=== PATIENT | male | born 1960 | race Caucasian/White ===

== ENCOUNTER 2017-11-11 20:57 | Inpatient (IN) | payer SELFPAY ==
[2017-11-11] MEDS ORDERED: Sodium Chloride 0.9% 1,000 ML IV SCH (23:30)
[2017-11-11] MEDS ORDERED: Acetaminophen 325 MG TAB PO PRN (23:31)
[2017-11-11] MEDS ORDERED: Ondansetron ODT 4 MG TAB SL PRN (23:31)
[2017-11-11] MEDS ORDERED: Ondansetron HCl/PF 4 MG/2 ML Vial IVP PRN (23:31)
[2017-11-12] MEDS ORDERED: Acetaminophen 325 MG TAB PO PRN (03:59)
[2017-11-12] MEDS ORDERED: Mag-Al 1200 mg/1200 mg/30 ML UDCUP PO PRN (03:59)
[2017-11-12] MEDS ORDERED: Senokot 8.6 MG TAB PO PRN (03:59)
[2017-11-12] MEDS ORDERED: Guaifenesin DM 100-10/5 ML UDCUP PO PRN (03:59)
[2017-11-12 04:41] LABS: Bilirubin Negative (Negative); Blood, Urine Negative (Negative); Clarity CLEAR (Clear); Glucose, Urine (Dipstick) Negative (Negative); Leukocyte Negative (Negative); Nitrite Negative (Negative); Protein, Urine (Dipstick) Negative (Neg-Trace); Specific Gravity, Urine 1.008 (1.002-1.036); Urobilinogen 0.2 mg/dL (0.2-1.0)
[2017-11-12 04:43] LABS: Bacteria/HPF None Seen HPF (None Seen); Hyaline Casts/LPF 0-3 HYALINE CAST LPF (0-3 Hyaline); RBC/HPF None Seen HPF (0-3); Squamous Epithelial None Seen HPF (0-3); WBC/HPF None Seen HPF (0-3)
[2017-11-12] MEDS: Sodium Chloride 0.9% 1,000 ML IV SCH ×2 (04:46→16:24)
[2017-11-12 05:10] LABS: #Eosinphils 0.1 thou/uL (0.0-0.7); #Lymphocytes 1.5 thou/uL (1.20-3.40); #Monocytes 0.5 thou/uL (0.11-0.59); #Neutrophils 2.5 thou/uL (1.40-6.50); %Basophils 0.1 % (0.0-1.0); %Eosinophils 2.3 % (0.0-10.0); %Lymphocytes 32.7 % (21.0-51.0); %Monocytes 10.2 % (0.0-10.0); %Neutrophils 54.7 % (42.0-75.0); Mean Corpuscular HGB CONC 34.9 g/dL (32.0-36.0); Mean Corpuscular Hemoglobin 30.6 pg (27.0-31.0); Mean Corpuscular Volume 87.6 fl (80.0-94.0); Mean Platelet Volume 9.3 fL (7.4-10.4); Platelet Count 122 thou/uL (130-400); RBC Distribution Width 11.7 % (11.5-14.5); Red Blood Cell (RBC) Count 3.26 mill/uL (4.70-6.10); White Blood Cell (WBC) Count 4.5 thou/uL (4.8-10.8)
[2017-11-12 05:21] VITALS: BMI 21.3
[2017-11-12 05:24] LABS: Anion Gap 8 mmol/L (10-20); BUN (Urea Nitrogen) 50 mg/dL (8.4-25.7); BUN/Creatinine Ratio 28.25; Calc. Creatinine Clearance 44 mL/min (70-130); Calcium 8.6 mg/dL (7.8-10.44); Carbon Dioxide 17 mmol/L (22-29); Chloride 116 mmol/L (98-107); Estimated GFR-MDRD 40; Glucose 95 mg/dL (70-105); Phosphorus 3.3 mg/dL (2.3-4.7); Potassium 4.4 mmol/L (3.5-5.1); Sodium 137 mmol/L (136-145)
--- NOTE | 2017-11-12 07:11 | HP ---
REASON FOR ADMISSION: Dehydration, acute kidney injury. HISTORY OF PRESENT ILLNESS: Please note the patient is a very poor historian and most of this histor y is obtained by talking to his , . Krissy Bustamante. The patient started to eat less and was n ot drinking as much as he does usually. This has been ongoing for 2 days or so. He was getting off balance and was slow to ambulate. The knew he is getting dehydrated and as this has happened be fore and brought him to the emergency room. No complaints of fever, cough, or expectoration. No com plaints of chest pain, palpitation, PND or orthopnea. 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 CURRENT MEDICATIONS: Norvasc 5 mg daily, aspirin 81 mg daily, vitamin B12 1000 mcg p.o. daily, ameena us sulfate daily, folic acid 1 mg daily, lisinopril 20 mg daily, multivitamin 1 capsule daily. ALLERGIES: SULFA. PERSONAL HISTORY: Does not abuse alcohol or drugs. No history of smoking. Lives with his . FAMILY HISTORY: Mother is living. Father is and he does not recall the exact cause. REVIEW OF SYSTEMS: The following complete review of systems was negative, unless otherwise mentioned in the HPI or below: Constitutional: Weight loss or gain, ability to conduct usual activities. Skin: Rash, itching. Eyes: Double vision, pain. ENT/Mouth: Nose bleeding, neck stiffness, pain, tenderness. Cardiovascular: Palpitations, dyspnea on exertion, orthopnea. Respiratory: Shortness of breath, wheezing, cough, hemoptysis, fever or night sweats. Gastrointestinal: Poor appetite, abdominal pain, heartburn, nausea, vomiting, constipation, or diarr hea. Genitourinary: Urgency, frequency, dysuria, nocturia. Musculoskeletal: Pain, swelling. Neurologic/Psychiatric: Anxiety, depression. Allergy/Immunologic: Skin rash, bleeding tendency. PHYSICAL EXAMINATION: GENERAL: The patient is a 57-year-old male who is currently not in any acute distress. VITAL SIGNS: Blood pressure is 134/80, pulse 66 per minute, respiratory rate 18 per minute, temperat ure 98 degrees Fahrenheit, saturating 98% on room air. NECK: Supple, no elevated JVD. HEENT: Eyes, extraocular muscles intact. Pupils reacting to light. Oral cavity mucous membranes ar e dry. No exudates or congestion. CARDIOVASCULAR: S1, S2 heard. Regular rhythm. RESPIRATORY: Air entry 1+ bilateral. Scattered rhonchi plus bilateral. ABDOMEN: Soft, bowel sounds heard. No tenderness, rigidity or guarding. EXTREMITIES: No peripheral edema or calf tenderness. VASCULAR SYSTEM: Peripheral pulses 1+ bilateral, no ischemic ulcerations or gangrene. CENTRAL NERVOUS SYSTEM: No gross focal signs seen. The patient is seen moving all extremities. His strength in both upper extremities appears to be same. PSYCHIATRIC: The patient does not have any hallucinations or delusions. LABORATORY DATA AND X-RAY FINDINGS: White count of 6, H&H is 10 and 29, platelet count 137, MCV is 8 1. Serum bicarbonate 14, BUN 62, creatinine 3.0. Glucose 133. CK level is 231. Albumin is 4. UA is negative for any infection. EKG done shows normal sinus rhythm at 60 beats per minute. There is poor R-wave progression. There are questionable Q-waves seen in lead II, III, AVF. CLINICAL IMPRESSION AND PLAN: The patient will be admitted to medical floor for acute kidney injury, metabolic acidosis, moderate dehydration. He will be on normal saline at 70 mL per hour. We will c ontinue his Norvasc, aspirin, folic acid, thiamine, and multivitamin as before. Ultrasound of the ki dneys will be obtained. The patient does not appear to have any infection at present. If his renal function were to get worse, Nephrology consultation will be requested. I have discussed code status with him and his , Ms. Krissy Bustamante, both of them want him to be full code for now.
[2017-11-12] MEDS: Folic Acid 1 MG TAB PO SCH (08:41)
[2017-11-12] MEDS: Cyanocobalamin (Vitamin B-12) 1,000 MCG TAB PO SCH (08:41)
[2017-11-12] MEDS: Amlodipine 5 MG TAB PO SCH (08:41)
[2017-11-12] MEDS: Multivitamin W/ Minerals 1 TAB PO SCH (08:42)
[2017-11-12] MEDS: Famotidine 20 MG TAB PO SCH (08:42)
[2017-11-12] MEDS: Enoxaparin Sodium 30 MG/0.3 ML SYRINGE SC SCH (08:42)
[2017-11-12] MEDS: Aspirin 81 mg Enteric Coated Tablet PO SCH (08:42)
--- NOTE | 2017-11-12 09:26 | ULT ---
BILATERAL RENAL ULTRASOUND: Date: 11/12/17 HISTORY: Acute renal insufficiency. FINDINGS: The right kidney measures 10.1 cm in length and the left kidney measures 11.0 cm in length. No focal mass or hydronephrosis is seen. The urinary bladder is grossly unremarkable. Cortical echogenicity is mildly increased. Cortical thickness is normal. IMPRESSION: No evidence of high grade obstruction. POS: [facility]
--- NOTE | 2017-11-12 18:15 | CON ---
DATE OF CONSULTATION: 11/12/2017. CONSULTING PHYSICIAN: Dr. Yañez. REASON FOR CONSULTATION: Acute kidney injury. REASON FOR ADMISSION: Poor p.o. intake and acute kidney injury. HISTORY OF PRESENT ILLNESS: This is a 57-year-old male with a history of CVA, skull fracture, alcoho l abuse, hypertension who came to the hospital with above complaints. The patient was not eating rama y well and since he has history of acute kidney injury in the past, family brought him in and was fou nd to have a creatinine of 3.04 from his baseline of 1.72. The patient was started on IV fluids last night and creatinine got better to 1.7. He is feeling better. No nausea, vomiting, no chest pain r eported to me. The patient is a poor historian. PAST MEDICAL HISTORY: Positive for CVA, skull fracture, alcohol abuse, hypertension. PAST SURGICAL HISTORY: History of craniectomy. HOME MEDICATIONS: Norvasc, aspirin, vitamin B12, ferrous sulfate, folic acid, lisinopril, multivitam in. ALLERGIES: To SULFA. SOCIAL HISTORY: No smoking, alcohol or illicit drug abuse. FAMILY HISTORY: No history of any kidney disease. REVIEW OF SYSTEMS: The following complete review of systems was negative, unless otherwise mentioned in the HPI or below: Constitutional: Weight loss or gain, ability to conduct usual activities. Skin: Rash, itching. Eyes: Double vision, pain. ENT/Mouth: Nose bleeding, neck stiffness, pain, tenderness. Cardiovascular: Palpitations, dyspnea on exertion, orthopnea. Respiratory: Shortness of breath, wheezing, cough, hemoptysis, fever or night sweats. Gastrointestinal: Poor appetite, abdominal pain, heartburn, nausea, vomiting, constipation, or diarr hea. Genitourinary: Urgency, frequency, dysuria, nocturia. Musculoskeletal: Pain, swelling. Neurologic/Psychiatric: Anxiety, depression. Allergy/Immunologic: Skin rash, bleeding tendency. PHYSICAL EXAMINATION: GENERAL: This is a thin-built male in no apparent distress. VITAL SIGNS: Temperature 98.7, pulse 65, respiratory rate 18, blood pressure . HEENT: Atraumatic, normocephalic. Oral mucosa is moist. NECK: Supple. CARDIOVASCULAR: S1, S2 heard. Rate and rhythm regular. RESPIRATORY: Clear. GASTROINTESTINAL: Abdomen is soft. MUSCULOSKELETAL: 1+ edema. DERMATOLOGIC: No skin rash. NEUROLOGIC: Alert, awake. PSYCHIATRIC: Mood and affect. LABORATORY DATA: Hemoglobin is 10.0, potassium is 4.4, BUN is 50, creatinine is 1.7. On admission, creatinine was 3.04. Urine with no pyuria. ASSESSMENT AND PLAN: 1. Acute kidney injury most likely volume depletion, responded appropriately to IV hydration. Be ge ntle with hydration and monitor closely. 2. Avoid nephrotoxins. 3. Anemia, rule out bleed and rule out nutritional deficiencies. 4. Metabolic acidosis, getting better with IV hydration. 5. Hypertension, stable. 6. Edema, controlled. Plan is to continue IV hydration. Avoid nephrotoxins and renally dose all medications. We will foll ow. Thank you for the consult. supplementation and rule out nutritional deficiencies.
[2017-11-13] MEDS: Sodium Chloride 0.9% 1,000 ML IV SCH ×2 (04:02→23:09)
[2017-11-13] MEDS: Cyanocobalamin (Vitamin B-12) 1,000 MCG TAB PO SCH (07:49)
[2017-11-13] MEDS: Famotidine 20 MG TAB PO SCH ×2 (07:49→20:28)
[2017-11-13] MEDS: Aspirin 81 mg Enteric Coated Tablet PO SCH (07:49)
[2017-11-13] MEDS: Amlodipine 5 MG TAB PO SCH (07:49)
[2017-11-13] MEDS: Folic Acid 1 MG TAB PO SCH (07:50)
[2017-11-13] MEDS: Multivitamin W/ Minerals 1 TAB PO SCH (07:50)
[2017-11-13] MEDS: Enoxaparin Sodium 30 MG/0.3 ML SYRINGE SC SCH (07:50)
--- NOTE | 2017-11-13 10:52 | PRG ---
DATE OF SERVICE: 11/13/2017 PHYSICAL EXAMINATION: GENERAL: This is a well-built male in no apparent distress. VITAL SIGNS: Temperature 97.9, pulse 63, respiratory rate 18, blood pressure 123/80. LABORATORY DATA: No labs done today. ASSESSMENT AND PLAN: 1. Acute kidney injury most likely volume depletion. Continue gentle hydration and monitor labs. 2. Metabolic acidosis. 3. Hypertension. 4. Anemia. 5. Edema. Repeat labs. Follow electrolytes. Avoid nephrotoxins.
[2017-11-13 11:36] LABS: Anion Gap 7 mmol/L (10-20); BUN (Urea Nitrogen) 27 mg/dL (8.4-25.7); Calc. Creatinine Clearance 62 mL/min (70-130); Calcium 8.7 mg/dL (7.8-10.44); Carbon Dioxide 23 mmol/L (22-29); Chloride 114 mmol/L (98-107); Estimated GFR-MDRD 58; Glucose 99 mg/dL (70-105); Potassium 5.1 mmol/L (3.5-5.1); Sodium 139 mmol/L (136-145)
--- NOTE | 2017-11-13 16:55 | PDOC.PN ---
- Subjective Encounter Start Date: 11/13/17 Encounter Start Time: 14:00 Patoient ois seen today, alert and oriented. No other Concerns noted. He still fels very weak, not able to get up and walk. - Objective Resuscitation Status: Resuscitation Status FULL:Full Resuscitation MAR Reviewed: Yes Vital Signs & Weight: Vital Signs (12 hours) Temp Pulse Resp BP BP Pulse Ox 11/13/17 08:00 97.9 F 63 18 11/13/17 07:49 63 123/80 11/13/17 07:44 97.9 F 63 16 123/80 94 L Weight Weight 149 lb 1.225 oz I&O: 11/12/17 11/13/17 11/14/17 06:59 06:59 06:59 Intake Total 1066 770 Output Total 1225 3250 Balance -159 -2480 Result Diagrams: 11/12/17 04:08 11/13/17 11:09 Radiology Reviewed by me: Yes Phys Exam - Physical Examination HEENT: PERRLA, moist MMs Neck: no nodes, no JVD Respiratory: no wheezing, no rales Cardiovascular: RRR, no significant murmur Gastrointestinal: soft, non-tender Musculoskeletal: no edema, pulses present Neurological: non-focal Lymphatic: no nodes Dx/Plan (1) THIERRY (acute kidney injury) Code(s): N17.9 - ACUTE KIDNEY FAILURE, UNSPECIFIED Status: Acute Comment: Improving with IV fluids, now Creatinine Close to baseline, pt feels very tired and achy, will do CPK to look for any Rhabdomyolysis. (2) Moderate dehydration Code(s): E86.0 - DEHYDRATION Status: Acute Comment: Improved with IV hydration (3) Delirium Code(s): R41.0 - DISORIENTATION, UNSPECIFIED Status: Acute Comment: Likley from TBI. (4) Dementia, multiinfarct Code(s): F01.50 - VASCULAR DEMENTIA WITHOUT BEHAVIORAL DISTURBANCE Status: Chronic (5) Hypertension Code(s): I10 - ESSENTIAL (PRIMARY) HYPERTENSION Status: Chronic Comment: [place], well controlled. - Plan cont current plan of care, PT/OT, social media coordinator, out of bed/ambulate, DVT proph w/lovenox Plan to do PT/OT evalaution, pt is not getting out of bed. he has h/o TBI not a reliable historiam. Review of Systems - Review of Systems Constitutional: weakness, malaise Eyes: negative: Pain, Vision Change, Conjunctivae Inflammation, Eyelid Inflammation, Redness, Other ENT: negative: Ear Pain, Ear Discharge, Nose Pain, Nose Discharge, Nose Congestion, Mouth Pain, Mouth Swelling, Throat Pain, Throat Swelling, Other Respiratory: negative: Cough, Dry, Shortness of Breath, Hemoptysis, SOB with Excertion, Pleuritic Pain, Sputum, Wheezing Cardiovascular: negative: chest pain, palpitations, orthopnea, paroxysmal nocturnal dyspnea, edema, light headedness, other Gastrointestinal: negative: Nausea, Vomiting, Abdominal Pain, Diarrhea, Constipation, Melena, Hematochezia, Other Musculoskeletal: negative: Neck Pain, Shoulder Pain, Arm Pain, Back Pain, Hand Pain, Leg Pain, Foot Pain, Other Neurological: Weakness. negative: Numbness, Incoordination, Change in Speech, Confusion, Seizures, Other - Medications/Allergies Allergies/Adverse Reactions: Allergies Allergy/AdvReac Type Severity Reaction Status Date / Time sulfamethoxazole Allergy Intermediate Verified 01/27/16 21:50 [From Bactrim] trimethoprim [From Bactrim] Allergy Intermediate Verified 01/27/16 21:50 Medications: Current Medications Acetaminophen (Tylenol) 650 mg PO Q4H PRN PRN Reason: Headache/Fever or Pain Al Hydroxide/Mg Hydroxide (Maalox) 30 ml PO Q6H PRN PRN Reason: Heartburn or Indigestion Amlodipine Besylate (Norvasc) 5 mg PO DAILY [facility] Last Admin: 11/13/17 07:49 Dose: 5 mg Aspirin (Ecotrin) 81 mg PO DAILY [facility] Last Admin: 11/13/17 07:49 Dose: 81 mg Cyanocobalamin (Vitamin B-12) 1,000 mcg PO DAILY [facility] Last Admin: 11/13/17 07:49 Dose: 1,000 mcg Enoxaparin Sodium (Lovenox) 40 mg SC 0900 [facility] Famotidine (Pepcid) 20 mg PO BID [facility] Folic Acid (Folvite) 1 mg PO DAILY [facility] Last Admin: 11/13/17 07:50 Dose: 1 mg Guaifenesin/Dextromethorphan (Robitussin Dm) 15 ml PO Q4H PRN PRN Reason: Cough Sodium Chloride (Normal Saline 0.9%) 1,000 mls @ 70 mls/hr IV .[id number] [facility] Last Admin: 11/13/17 04:02 Dose: 1,000 mls Iron/Minerals/Multivitamins (Theragran M) 1 tab PO DAILY [facility] Last Admin: 11/13/17 07:50 Dose: 1 tab Senna (Senokot) 2 tab PO HSPRN PRN PRN Reason: Constipation Thiamine HCl (Thiamine) 250 mg PO DAILY [facility] Last Admin: 11/13/17 07:49 Dose: 250 mg
[2017-11-14] MEDS: Folic Acid 1 MG TAB PO SCH (08:35)
[2017-11-14] MEDS: Multivitamin W/ Minerals 1 TAB PO SCH (08:36)
[2017-11-14] MEDS: Cyanocobalamin (Vitamin B-12) 1,000 MCG TAB PO SCH (08:36)
[2017-11-14] MEDS: Aspirin 81 mg Enteric Coated Tablet PO SCH (08:37)
[2017-11-14] MEDS: Amlodipine 5 MG TAB PO SCH (08:37)
[2017-11-14] MEDS ORDERED: Enoxaparin Sodium 40 MG/0.4 ML SYRINGE SC SCH (09:00)
[2017-11-14] MEDS: Sodium Chloride 0.9% 1,000 ML IV SCH (09:36)
[2017-11-14] MEDS: Famotidine 20 MG TAB PO SCH (09:49)
[2017-11-14 10:10] LABS: Anion Gap 10 mmol/L (10-20); BUN (Urea Nitrogen) 17 mg/dL (8.4-25.7); Calc. Creatinine Clearance 62 mL/min (70-130); Calcium 8.7 mg/dL (7.8-10.44); Carbon Dioxide 23 mmol/L (22-29); Chloride 112 mmol/L (98-107); Estimated GFR-MDRD 59; Glucose 103 mg/dL (70-105); Potassium 4.7 mmol/L (3.5-5.1); Sodium 140 mmol/L (136-145)
[2017-11-14 11:09] VITALS: BP 129/80; TEMP 97.8
--- NOTE | 2017-11-14 13:31 | PRG ---
DATE OF SERVICE: 11/14/2017 SUBJECTIVE: Patient was seen and examined at bedside and overnight events noted. Patient denies any shortness of breath or chest pain or palpitation. No history of nausea or vomiting or diarrhea or f ever or chills or cramps. OBJECTIVE: GENERAL: This is a thin-built male in no apparent distress. VITAL SIGNS: Temperature 98.0, pulse 68, respiratory rate 18, blood pressure 124/74. HEENT: Atraumatic, normocephalic. Oral mucosa is moist. NECK: Supple. CARDIOVASCULAR: S1, S2 heard. Rate and rhythm regular. RESPIRATORY: Clear to auscultation. GASTROINTESTINAL: Abdomen is soft. MUSCULOSKELETAL: No tenderness. No edema. DERMATOLOGIC: No skin rash. NEUROLOGIC: Alert and awake and oriented x3. No focal neurologic deficits. Moving all the extremiti es. PSYCHIATRIC: Mood and affect normal. LABORATORY DATA: Potassium is 5.1, BUN 27, creatinine is 1.2. ASSESSMENT AND PLAN: 1. Acute kidney injury on chronic kidney disease secondary to volume depletion. Creatinine is much better. 2. Edema, controlled. 3. Hypertension, stable. 4. Acidosis, better. 5. Anemia. 6. Renal function is better. I will sign off.
--- NOTE | 2017-11-14 14:30 | DIS ---
DATE OF ADMISSION: 11/12/2017 DATE OF DISCHARGE: 11/14/2017 ADMITTING DIAGNOSIS: Acute kidney injury. DISCHARGE DIAGNOSIS: Acute kidney injury. SECONDARY DIAGNOSES: 1. Metabolic acidosis. 2. Moderate to severe dehydration. 3. History of traumatic brain injury. CONSULTANTS INVOLVED IN THIS CARE: Dr. Mata from Nephrology. HISTORY OF PRESENT ILLNESS AND HOSPITAL COURSE: In brief, this is a 57-year-old white male with a kn own past history of traumatic brain injury following a horse accident in 2006 with a skull fracture. The patient was in his usual state of health and lives with his and he started to eat less and was not drinking as much as he does usually and has been ongoing for almost 2-3 days and he was getti ng off balance and was slow to ambulate. The patient was brought to the ER thinking about dehydratio n and the patient was found to have worsening renal functions. He was on lisinopril daily, which was held because of the worsening creatinine. Patient was well hydrated, was started on IV fluids almos t for 2 days and his renal functions returned back to normal. During this admission, Nephrology was consulted who agreed with the plan and advised to hold off on the lisinopril. The patient had ultras ound of the kidneys which was unremarkable. The patient was discharged back home in stable condition and advised to restart his home medications and encouraged the patient to drink more water and hydra te well. PHYSICAL EXAMINATION: On date of discharge. VITAL SIGNS: Blood pressures are 129/80, heart rate of 60, respiratory rate is 18, saturation 97%. GENERAL: The patient is moderately built and moderately nourished, does not appear in acute distress . CARDIOVASCULAR: S1, S2 normal. No murmurs, rubs or gallops. LUNGS: Bilateral air entry was equal. No wheezing, no crackles. ABDOMEN: Soft, nontender. No guarding, no rebound tenderness. Bowel sounds normal. MUSCULOSKELETAL: No calf tenderness. No pedal edema, no joint tenderness, no joint swelling. DISCHARGE MEDICATIONS: 1. Ferrous sulfate 325 mg p.o. daily. 2. Lisinopril 20 mg p.o. daily. 3. Amlodipine 5 mg p.o. daily. 4. Aspirin 81 mg p.o. daily. 5. Folic acid 1 mg p.o. daily. 6. Thiamine 250 mg p.o. daily. DISCHARGE INSTRUCTIONS: Continue activity as tolerated. Advised to follow up with primary care phys ician in 1-2 weeks. Advised to continue to hydrate the patient very well. Advised to return back to the ER if any worsening symptoms or dehydration. I spent 35 minutes with this patient on date of discharge.
== END 2017-11-14 14:43 | disposition home or self-care (01) | DRG 683 ==
LOC: ERS 20:57 → T4-A 22:13
PROVIDERS: ADMIT Internal Medicine; ATTEND Internal Medicine
DX: N17.9 Acute kidney failure, unspecified (principal); E87.2 Acidosis; E86.0 Dehydration; Z87.820 Personal history of traumatic brain injury; Z88.2 Allergy status to sulfonamides; F17.220 Nicotine dependence, chewing tobacco, uncomplicated; D64.9 Anemia, unspecified; I10 Essential (primary) hypertension
CPT/HCPCS: 36415; 76770; 80048; 80069; 81001; 85025; 93005; 96360; G8978-GP-CH; G8979-GP-CH; G8980-GP-CH; G8987-GO-CI; G8988-GO-CI; G8989-GO-CI; J1650

== ENCOUNTER 2017-11-27 10:32 | Observation (INO) | payer SELFPAY ==
[2017-11-27 11:04] LABS: #Lymphocytes 1.1 thou/uL (1.20-3.40); #Monocytes 0.5 thou/uL (0.11-0.59); #Neutrophils 3.8 thou/uL (1.40-6.50); %Basophils 0.2 % (0.0-1.0); %Eosinophils 0.8 % (0.0-10.0); %Lymphocytes 20.7 % (21.0-51.0); %Monocytes 8.7 % (0.0-10.0); %Neutrophils 69.6 % (42.0-75.0); Hemoglobin 10.7 g/dL (14.0-18.0); Mean Corpuscular HGB CONC 35.1 g/dL (32.0-36.0); Mean Corpuscular Hemoglobin 30.8 pg (27.0-31.0); Mean Corpuscular Volume 87.7 fl (80.0-94.0); Mean Platelet Volume 9.2 fL (7.4-10.4); Platelet Count 171 thou/uL (130-400); RBC Distribution Width 11.7 % (11.5-14.5); Red Blood Cell (RBC) Count 3.47 mill/uL (4.70-6.10); White Blood Cell (WBC) Count 5.4 thou/uL (4.8-10.8)
[2017-11-27 11:27] LABS: ALT (SGPT) 15 U/L (8-55); AST (SGOT) 13 U/L (5-34); Albumin 4.9 g/dL (3.5-5.0); Alkaline Phosphatase 86 U/L (40-150); Anion Gap 17 mmol/L (10-20); BUN (Urea Nitrogen) 99 mg/dL (8.4-25.7); Bilirubin, Total 0.3 mg/dL (0.2-1.2); Calc. Creatinine Clearance 0 mL/min (70-130); Calcium 9.7 mg/dL (7.8-10.44); Carbon Dioxide 15 mmol/L (22-29); Chloride 108 mmol/L (98-107); Estimated GFR-MDRD 24; Globulin 2.7 g/dL (2.4-3.5); Glucose 118 mg/dL (70-105); Potassium 4.9 mmol/L (3.5-5.1); Protein, Total 7.6 g/dL (6.0-8.3); Sodium 135 mmol/L (136-145)
[2017-11-27 13:56] VITALS: BMI 20.3
[2017-11-27] MEDS ORDERED: Ondansetron ODT 4 MG TAB PO PRN (14:14)
[2017-11-27] MEDS ORDERED: Acetaminophen 325 MG TAB PO PRN (14:14)
[2017-11-27] MEDS: Sodium Chloride 0.9% 1,000 ML IV SCH ×2 (14:45→23:47)
[2017-11-27] MEDS: Heparin 5,000 UNITS/ML VIAL SC SCH ×2 (15:02→20:21)
--- NOTE | 2017-11-27 16:32 | HP ---
DATE OF ADMISSION: 11/27/2017 CHIEF COMPLAINT: Abnormal labs. HISTORY OF PRESENT ILLNESS: This is a 57-year-old white male who has a known history of traumatic br ain injury and has been recently admitted to the hospital for severe dehydration. The patient was di scharged and was closely followed up with Nephrology, Dr. Mata, who happened to see him as a follo wup visit a week ago and he ordered some labs on Saturday, which were noted to be having elevated creat inine of 3.2. Once the labs were back, Nephrology called the patient and advised him to go to the ER for further evaluation. When the patient arrived in the ER, he had a repeat BMP that was showing ev idence of elevated creatinine of 2.9 and with a markedly elevated BUN of 99. The patient has severe traumatic brain injury and he has some sort of retardation where he does not drink enough water and i s severely dehydrated. He denies having any chest pain, no nausea, no vomiting, no diarrhea, no cons tipation. No history of any fever. PAST MEDICAL HISTORY: 1. History of CVA in 2015 with right-sided hemiparesis. 2. History of horse accident in 1999 with a skull fracture and traumatic brain injury. 3. History of alcohol abuse. 4. History of esophageal varices. 5. Hypertension. PAST SURGICAL HISTORY: History of skull fracture surgery. ALLERGIES: No known drug allergies. HOME MEDICATIONS: 1. Amlodipine 5 mg p.o. daily. 2. Aspirin 81 mg p.o. daily. 3. Ferrous sulfate 975 mg p.o. daily. 4. Folic acid 1 mg p.o. daily. 5. Lisinopril 20 mg p.o. daily. 6. Multivitamin 1 capsule daily. 7. Thiamine 250 mg p.o. daily. REVIEW OF SYSTEMS: All 12 systems are reviewed with the patient thoroughly and found to be negative at this time. Systems reviewed are HEENT, CVS, [employer] WORK[employer], respiratory, GI, , musculoskeletal, skin and i ntegument, psychiatric. PHYSICAL EXAMINATION: VITAL SIGNS: Blood pressure is 134/62, heart rate is 55, respiration rate of 16, saturation 98% on r oom air. GENERAL: The patient is moderately built and moderately nourished. He does not appear to be in acut e distress at this time. He is alert and oriented x3. HEENT: Atraumatic, normocephalic. PERRLA. Extraocular movements are intact. Oral mucosa is pink a nd moist. CARDIOVASCULAR: S1, S2 normal. No murmurs, rubs or gallops. LUNGS: Bilateral air entry was equal. No wheezing. No crackles. ABDOMEN: Soft, nontender. No guarding or rebound tenderness. Bowel sounds normal. MUSCULOSKELETAL: No calf tenderness. No pedal edema. No joint tenderness. No joint swelling. SKIN: No cyanosis, no erythema, no rash, no pallor. CENTRAL NERVOUS SYSTEM: Cranial nerve examination II-XII intact. No focal deficits were noted at th is time. PSYCHIATRIC: No signs of suicidal ideation. No signs of fan. No signs of depression. LABORATORY DATA: WBC 5.4, hemoglobin is 10.2, hematocrit is 30.4, platelets are 171,000. Sodium 135 , potassium 4.9, chloride 108, bicarb is 15. BUN is 99, creatinine is 2.77, blood sugar 118. ASSESSMENT: 1. Acute kidney injury. 2. Hyperuricemia. 3. Acute hyponatremia. 4. Hyperchloremia. 5. Metabolic acidosis. PLAN: 1. The plan is to closely monitor this patient with aggressive IV hydration with normal saline at 12 5 an hour. We will closely monitor. Nephrology has been consulted. We will continue to monitor and look for BUN to return back to normal. 2. The patient has hyperchloremic metabolic acidosis. The patient could be losing a lot of bicarbon ate possibly secondary to RTA type 1 disorder. I would discuss this with Nephrology if the patient c ould be having a renal tubular acidosis contributing to the present problems. 3. Hypertension is well controlled. Blood pressures are well controlled at this time. We will hold off on the lisinopril because of the worsening renal functions. 4. The patient has a history of alcoholism. We will continue the patient on thiamine and multivitam in. We will closely monitor for any alcohol withdrawal symptoms. 5. Deep venous thrombosis prophylaxis with heparin 5000 subcu b.i.d. I spent 75 minutes with this patient.
[2017-11-27 19:45] LABS: Bilirubin Negative (Negative); Blood, Urine Negative (Negative); Clarity CLEAR (Clear); Glucose, Urine (Dipstick) Negative (Negative); Leukocyte Negative (Negative); Nitrite Negative (Negative); Protein, Urine (Dipstick) Negative (Neg-Trace); Specific Gravity, Urine 1.014 (1.002-1.036); Urobilinogen 0.2 mg/dL (0.2-1.0); pH, Urine 5.5 (5.0-9.0)
[2017-11-27] MEDS: Famotidine 20 MG TAB PO SCH (20:21)
[2017-11-27] MEDS: Docusate 100 MG CAP PO SCH (20:21)
--- NOTE | 2017-11-28 03:13 | CON ---
DATE OF CONSULTATION: 11/27/2017 CONSULTING PHYSICIAN: Dr. Arango. REASON FOR CONSULTATION: Acute kidney injury. REASON FOR ADMISSION: Abnormal labs. HISTORY OF PRESENT ILLNESS: A 57-year-old male with history of CKD, THIERRY, dehydration, CVA, horse acc ident came to the hospital with elevated creatinine. The patient was seen by Dr. Ha as outpatient this week and repeat BMP showed acute kidney injury with increased creatinine of 3. He was sent to [facility]. The patient denies any chest pain. No shortness of breath. No fever or chills. No na usea or vomiting. The patient started to hydrate himself. PAST MEDICAL HISTORY: Positive for CVA, alcohol abuse, varices, hypertension. PAST SURGICAL HISTORY: Skull surgery. ALLERGIES: No known drug allergies. HOME MEDICATIONS: Amlodipine, aspirin, folic acid, lisinopril, multivitamin, and thiamine. SOCIAL HISTORY: No smoking, alcohol, illicit drug abuse. FAMILY HISTORY: No history of kidney disease. REVIEW OF SYSTEMS: The following complete review of systems was negative, unless otherwise mentioned in the HPI or below: Constitutional: Weight loss or gain, ability to conduct usual activities. Skin: Rash, itching. Eyes: Double vision, pain. ENT/Mouth: Nose bleeding, neck stiffness, pain, tenderness. Cardiovascular: Palpitations, dyspnea on exertion, orthopnea. Respiratory: Shortness of breath, wheezing, cough, hemoptysis, fever or night sweats. Gastrointestinal: Poor appetite, abdominal pain, heartburn, nausea, vomiting, constipation, or diarrhea. Genitourinary: Urgency, frequency, dysuria, nocturia. Musculoskeletal: Pain, swelling. Neurologic/Psychiatric: Anxiety, depression. Allergy/Immunologic: Skin rash, bleeding tendency. PHYSICAL EXAMINATION: GENERAL: This is a thin-built male in no apparent distress. VITAL SIGNS: Temperature 97.6, pulse 67, respiratory rate 18, blood pressure 120/69. HEENT: Atraumatic, normocephalic. Oral mucosa is moist. NECK: Supple. CARDIOVASCULAR: S1, S2 heard. Rate and rhythm regular. RESPIRATORY: Clear. GASTROINTESTINAL: Abdomen soft. MUSCULOSKELETAL: 1+ edema. DERMATOLOGIC: No rash. NEUROLOGIC: Alert, awake. PSYCHIATRIC: Mood and affect normal. LABORATORY DATA: Hemoglobin is 10.7. Potassium is 4.9, BUN is 9, creatinine is 2.7. ASSESSMENT AND PLAN: 1. Acute kidney injury most likely volume depletion. Agree with hydration. Hold lisinopril. The p atient is a poor candidate for lisinopril. It should not be used in the future. 2. Edema, controlled. 3. Hypertension, stable. 4. Anemia, mild. 5. Hyponatremia. We will give IV fluids. 6. Metabolic acidosis. Plan is to give IV fluids and monitor. 7. Continue IV fluids as tolerated. Avoid nephrotoxins. Hold lisinopril and other nephrotoxins and we will follow. Thank you for the consult.
[2017-11-28 04:31] LABS: #Eosinphils 0.1 thou/uL (0.0-0.7); #Lymphocytes 1.5 thou/uL (1.20-3.40); #Monocytes 0.4 thou/uL (0.11-0.59); #Neutrophils 2.2 thou/uL (1.40-6.50); %Basophils 0.4 % (0.0-1.0); %Eosinophils 1.9 % (0.0-10.0); %Lymphocytes 35.7 % (21.0-51.0); %Monocytes 8.6 % (0.0-10.0); %Neutrophils 53.4 % (42.0-75.0); Hemoglobin 9.2 g/dL (14.0-18.0); Mean Corpuscular HGB CONC 34.4 g/dL (32.0-36.0); Mean Corpuscular Hemoglobin 30.3 pg (27.0-31.0); Mean Corpuscular Volume 88.1 fl (80.0-94.0); Mean Platelet Volume 8.8 fL (7.4-10.4); Platelet Count 153 thou/uL (130-400); RBC Distribution Width 11.9 % (11.5-14.5); Red Blood Cell (RBC) Count 3.02 mill/uL (4.70-6.10); White Blood Cell (WBC) Count 4.1 thou/uL (4.8-10.8)
[2017-11-28 04:40] LABS: Anion Gap 10 mmol/L (10-20); BUN (Urea Nitrogen) 74 mg/dL (8.4-25.7); BUN/Creatinine Ratio 42.05; Calc. Creatinine Clearance 41 mL/min (70-130); Calcium 8.6 mg/dL (7.8-10.44); Carbon Dioxide 18 mmol/L (22-29); Chloride 115 mmol/L (98-107); Estimated GFR-MDRD 40; Glucose 88 mg/dL (70-105); Phosphorus 4.2 mg/dL (2.3-4.7); Potassium 5.5 mmol/L (3.5-5.1); Sodium 137 mmol/L (136-145)
[2017-11-28] MEDS: Sodium Chloride 0.9% 1,000 ML IV SCH (07:56)
[2017-11-28] MEDS: Ferrous Sulfate 325 MG TAB PO SCH (07:58)
[2017-11-28] MEDS: Folic Acid 1 MG TAB PO SCH (07:59)
[2017-11-28] MEDS: Docusate 100 MG CAP PO SCH ×2 (08:00→20:52)
[2017-11-28] MEDS: Famotidine 20 MG TAB PO SCH (08:00)
[2017-11-28] MEDS: Multivit, Therapeutic 1 TAB PO SCH (08:00)
[2017-11-28] MEDS: Aspirin 81 mg Enteric Coated Tablet PO SCH (08:00)
[2017-11-28] MEDS: Heparin 5,000 UNITS/ML VIAL SC SCH ×2 (08:01→20:51)
[2017-11-28] MEDS: Amlodipine 5 MG TAB PO SCH (08:02)
[2017-11-28] MEDS: Acetaminophen ER (8hr) 650 MG TAB PO SCH (09:54)
[2017-11-28] MEDS ORDERED: Sodium Chloride 0.9% 1,000 ML IV SCH (11:15)
[2017-11-28] MEDS ORDERED: Sodium Bicarbonate 150 MEQ in Dextrose 5% in Water 1,000 ML IV SCH (12:30)
--- NOTE | 2017-11-28 14:16 | PRG ---
DATE OF SERVICE: 11/28/2017 SUBJECTIVE: Patient was seen and examined at bedside and overnight events noted. Patient denies any shortness of breath or chest pain or palpitation. No history of nausea or vomitin g or diarrhea or fever or chills or cramps. OBJECTIVE: GENERAL: This is a well-built male, in no apparent distress. VITAL SIGNS: Temperature 98.2, pulse 72, respiratory rate 18, blood pressure 105/68. HEENT: Atraumatic, normocephalic. Oral mucosa is moist. NECK: Supple. CARDIOVASCULAR: S1, S2 heard. Rate and rhythm regular. RESPIRATORY: Clear to auscultation. GASTROINTESTINAL: Abdomen is soft. MUSCULOSKELETAL: No tenderness. No edema. DERMATOLOGIC: No skin rash. NEUROLOGIC: Alert and awake and oriented x3. No focal neurologic deficits. Moving all the extremit ies. PSYCHIATRIC: Mood and affect normal. LABORATORY DATA: Potassium is 5.5, BUN is 74, creatinine is 1.7. ASSESSMENT AND PLAN: 1. Acute kidney injury, most likely from volume depletion. 2. Metabolic acidosis, better with IV fluids. Continue IV fluids. Less likely to be RTA. We will check urine chloride and urine anion gap. 3. Anemia. 4. Hyponatremia, better. 5. Continue IV fluids. We will change it to sodium bicarbonate for today and we will follow.
--- NOTE | 2017-11-28 14:54 | PDOC.PN ---
- Subjective Encounter Start Date: 11/28/17 Encounter Start Time: 13:00 Patient is seen today, alert but orientation cannot be asses due to his TBI. Discused with Dr. herrera today. - Objective Resuscitation Status: Resuscitation Status FULL:Full Resuscitation MAR Reviewed: Yes Vital Signs & Weight: Vital Signs (12 hours) Temp Pulse Pulse Pulse Resp BP BP 11/28/17 11:31 98.2 F 72 20 11/28/17 08:02 63 111/62 11/28/17 08:00 98.2 F 72 20 11/28/17 07:55 63 66 111/62 11/28/17 07:21 97.7 F 63 18 11/28/17 04:05 98.1 F 60 14 BP BP Pulse Ox 11/28/17 11:31 105/68 99 11/28/17 08:02 11/28/17 08:00 11/28/17 07:55 119/58 L 11/28/17 07:21 102/66 97 11/28/17 04:05 98/54 L 99 Weight Weight 137 lb 14.4 oz I&O: 11/27/17 11/28/17 11/29/17 06:59 06:59 06:59 Intake Total 1968 1565 Output Total 1300 1075 Balance 668 490 Result Diagrams: 11/28/17 04:07 11/28/17 04:07 Radiology Reviewed by me: Yes Phys Exam - Physical Examination HEENT: PERRLA, moist MMs Neck: no nodes, no JVD Respiratory: no wheezing, no rales Cardiovascular: RRR, no significant murmur Gastrointestinal: soft, non-tender Musculoskeletal: no edema, pulses present Neurological: non-focal, normal sensation Psychiatric: normal affect, A&O x 3 Dx/Plan (1) Hyperkalemia Code(s): E87.5 - HYPERKALEMIA Status: Acute Comment: Will give Kayxalate, 30gm Po., Will closley Monitor. (2) THIERRY (acute kidney injury) Code(s): N17.9 - ACUTE KIDNEY FAILURE, UNSPECIFIED Status: Acute Comment: Improving with IV fluids, now Creatinine Close to baseline, pt feels very tired. (3) Delirium Code(s): R41.0 - DISORIENTATION, UNSPECIFIED Status: Acute Comment: Likley from TBI. (4) Moderate dehydration Code(s): E86.0 - DEHYDRATION Status: Acute Comment: Improved with IV hydration (5) Dementia, multiinfarct Code(s): F01.50 - VASCULAR DEMENTIA WITHOUT BEHAVIORAL DISTURBANCE Status: Chronic (6) Hypertension Code(s): I10 - ESSENTIAL (PRIMARY) HYPERTENSION Status: Chronic Comment: Stbale, well controlled. - Plan cont current plan of care, kilgore catheter, PT/OT, incentive spirometry, out of bed/ambulate, DVT proph w/heparin * . Review of Systems - Review of Systems Eyes: negative: Pain, Vision Change, Conjunctivae Inflammation, Eyelid Inflammation, Redness, Other ENT: negative: Ear Pain, Ear Discharge, Nose Pain, Nose Discharge, Nose Congestion, Mouth Pain, Mouth Swelling, Throat Pain, Throat Swelling, Other Respiratory: negative: Cough, Dry, Shortness of Breath, Hemoptysis, SOB with Excertion, Pleuritic Pain, Sputum, Wheezing Cardiovascular: negative: chest pain, palpitations, orthopnea, paroxysmal nocturnal dyspnea, edema, light headedness, other Gastrointestinal: negative: Nausea, Vomiting, Abdominal Pain, Diarrhea, Constipation, Melena, Hematochezia, Other Genitourinary: negative: Dysuria, Frequency, Incontinence, Hematuria, Retention , Other Musculoskeletal: negative: Neck Pain, Shoulder Pain, Arm Pain, Back Pain, Hand Pain, Leg Pain, Foot Pain, Other Skin: negative: Rash, Lesions, Leroy, Bruising, Other - Medications/Allergies Allergies/Adverse Reactions: Allergies Allergy/AdvReac Type Severity Reaction Status Date / Time sulfamethoxazole Allergy Intermediate Verified 01/27/16 21:50 [From Bactrim] trimethoprim [From Bactrim] Allergy Intermediate Verified 01/27/16 21:50 Medications: Current Medications Acetaminophen (Tylenol) 650 mg PO Q4H PRN PRN Reason: Headache/Fever or Pain Acetaminophen (Tylenol Er (8hr Arthritis Pain)) 650 mg PO DAILY [facility] Last Admin: 11/28/17 09:54 Dose: 650 mg Amlodipine Besylate (Norvasc) 5 mg PO DAILY [facility] Last Admin: 11/28/17 08:02 Dose: Not Given Aspirin (Ecotrin) 81 mg PO DAILY [facility] Last Admin: 11/28/17 08:00 Dose: 81 mg Docusate Sodium (Colace) 100 mg PO BID [facility] Last Admin: 11/28/17 08:00 Dose: 100 mg Famotidine (Pepcid) 20 mg PO DAILY [facility] Ferrous Sulfate (Feosol) 975 mg PO DAILY [facility] Last Admin: 11/28/17 07:58 Dose: 975 mg Folic Acid (Folvite) 1 mg PO DAILY [facility] Last Admin: 11/28/17 07:59 Dose: 1 mg Heparin Sodium (Porcine) (Heparin) 5,000 units SC BID [facility] Sodium Bicarbonate 150 meq/ (Dextrose/Water) 1,150 mls @ 100 mls/hr IV ONE [facility] Stop: 11/28/17 23:59 Multivitamins (Theragran) 1 tab PO DAILY [facility] Last Admin: 11/28/17 08:00 Dose: 1 tab Ondansetron HCl (Zofran Odt) 4 mg PO Q6H PRN PRN Reason: Nausea/Vomiting Sodium Chloride (Flush - Normal Saline) 10 ml IVF Q12HR [facility] Last Admin: 11/28/17 08:07 Dose: Not Given Sodium Chloride (Flush - Normal Saline) 10 ml IVF PRN PRN PRN Reason: Saline Flush Thiamine HCl (Thiamine) 250 mg PO DAILY [facility] Last Admin: 11/28/17 08:00 Dose: 250 mg
[2017-11-28 15:53] LABS: Creatinine, Urine 40.47 mg/dL (63-166); Potassium, Urine Less than 10.0 mmol/L; Sodium, Urine 39 mmol/L (Not Available)
[2017-11-29 04:32] LABS: Anion Gap 11 mmol/L (10-20); BUN (Urea Nitrogen) 43 mg/dL (8.4-25.7); Calc. Creatinine Clearance 49 mL/min (70-130); Calcium 8.8 mg/dL (7.8-10.44); Carbon Dioxide 24 mmol/L (22-29); Chloride 111 mmol/L (98-107); Estimated GFR-MDRD 49; Glucose 98 mg/dL (70-105); Potassium 4.5 mmol/L (3.5-5.1); Sodium 141 mmol/L (136-145)
[2017-11-29] MEDS: Acetaminophen ER (8hr) 650 MG TAB PO SCH (08:17)
[2017-11-29] MEDS: Multivit, Therapeutic 1 TAB PO SCH (08:18)
[2017-11-29] MEDS: Ferrous Sulfate 325 MG TAB PO SCH (08:18)
[2017-11-29] MEDS: Folic Acid 1 MG TAB PO SCH (08:19)
[2017-11-29] MEDS: Docusate 100 MG CAP PO SCH (08:19)
[2017-11-29] MEDS: Heparin 5,000 UNITS/ML VIAL SC SCH (08:19)
[2017-11-29] MEDS: Amlodipine 5 MG TAB PO SCH (08:20)
[2017-11-29] MEDS: Aspirin 81 mg Enteric Coated Tablet PO SCH (08:20)
[2017-11-29] MEDS ORDERED: Famotidine 20 MG TAB PO SCH (09:00)
[2017-11-29 11:41] VITALS: BP 136/86; TEMP 98
--- NOTE | 2017-11-29 12:05 | DIS ---
DISCHARGE DIAGNOSES: 1. Acute kidney injury secondary to dehydration, resolved. 2. Chronic kidney disease stage 3. 3. Hyperkalemia secondary to #1, resolved. 4. Moderate dehydration, resolved. 5. Hypertension, stable. CONSULTATIONS: Dr. Mata with Nephrology Service. PERTINENT LABORATORY AND X-RAY FINDINGS: Potassium ranged between 4.5-5.5, creatinine ranged between 1.48-2.77 with estimated GFR ranging between 24-49, phosphorus ranged between 3.9-4.2. LFTs within normal limits. Total CK of 99. CBC showed a white blood cell count ranging between 4.1-5.4, hemoglo bin ranged between 9.2-10.7. HOSPITAL COURSE: The patient was observed on the telemetry unit after initially presenting with acut e kidney injury in the context of known chronic kidney disease stage 3. The patient with moderate de hydration, given IV fluids and held on home regimen of lisinopril. Patient was monitored with serial creatinines showing overall improving renal function with fluid resuscitation and avoidance of nephr otoxic agents. The patient was evaluated by the Nephrology Service with recommendations for supporti ve management and conservative care. The patient was encouraged on regular fluid intake after discha rge with the assistance of family support. Overall, patient did remain clinically stable throughout the hospital course. He is currently tolerating regular oral intake. I have examined the patient at the time of discharge and discussed pertinent laboratory findings and follow up instructions, at wh ich point the patient verbalizes understanding and agreement. The patient overall clinically stable and ready for discharge on 11/29/2017. DISCHARGE MEDICATIONS: 1. Amlodipine 5 mg 1 tablet p.o. daily. 2. Enteric coated aspirin 81 mg 1 tab p.o. daily. 3. Feosol 975 mg p.o. daily. 4. Folic acid 1 mg p.o. daily. 5. Lisinopril 20 mg p.o. daily, hold until 12/02/2017. 6. Multivitamin 1 tab p.o. daily. 7. Thiamin 250 mg p.o. daily. FOLLOWUP: The patient will follow up with Cyndi Ruiz within 7 days of discharge. CONDITION ON DISCHARGE: Stable. ACTIVITY: Ad bjorn. DIET: Regular. CODE STATUS: Full. DISPOSITION: Home on 11/29/2017.
--- NOTE | 2017-11-29 19:36 | PRG ---
DATE OF SERVICE: 11/29/2017 SUBJECTIVE: Patient was seen and examined at bedside and overnight events noted. Patient denies any shortness of breath or chest pain or palpitation. No history of nausea or vomiting or diarrhea or fever or chills or cramps. OBJECTIVE: GENERAL: This is a well-built male, in no apparent distress. VITAL SIGNS: Temperature 98.0, pulse 70, respiratory rate 18, blood pressure 130/86. HEENT: Atraumatic, normocephalic. Oral mucosa is moist NECK: Supple CARDIOVASCULAR: S1S2 heard, Rate and rhythm regular. RESPIRATORY: Clear to auscultation. GASTROINTESTINAL: Abdomen is soft. MUSCULOSKELETAL: No tenderness. No edema. DERMATOLOGIC: No skin rash. NEUROLOGIC: Alert and awake and oriented x3. No focal neurologic deficits. Moving all the extremit ies. PSYCHIATRIC: Mood and affect normal. LABORATORY DATA: Potassium is 4.5, BUN 43, creatinine is 1.4. ASSESSMENT AND PLAN: 1. Acute kidney injury, better, most likely volume depletion. 2. Metabolic acidosis, better with IV bicarbonate. 3. Anemia. 4. Hyponatremia. Overall, renal function is better. Follow in the clinic in 1-2 weeks.
== END 2017-11-29 13:15 | disposition home or self-care (01) ==
LOC: ERS 10:32 → 2SW 13:27
PROVIDERS: ADMIT Family Medicine; ATTEND Family Medicine
DX: N17.9 Acute kidney failure, unspecified (principal); E86.0 Dehydration; I10 Essential (primary) hypertension; E79.0 Hyperuricemia without signs of inflammatory arthritis and tophaceous disease; E87.1 Hypo-osmolality and hyponatremia; E87.8 Other disorders of electrolyte and fluid balance, not elsewhere classified; E87.2 Acidosis; D64.9 Anemia, unspecified; F01.50 Vascular dementia, unspecified severity, without behavioral disturbance, psychotic disturbance, mood disturbance, and anxiety; Z79.82 Long term (current) use of aspirin; Z79.899 Other long term (current) drug therapy
CPT/HCPCS: 36415; 80048; 80053; 80069; 81003; 82436; 82550; 82570; 84100; 84133; 84300; 85025; 96360; 96361; 96365; 96366; A4216; G0378; G8978-GP-CK; G8979-GP-CK; G8980-GP-CK; G8987-GO-CI; G8988-GO-CI; G8989-GO-CI; J1644; J7070

== ENCOUNTER 2018-10-18 21:38 | Observation (INO) | payer SELFPAY ==
[~2018-10-18 21:38] MED LIST: Iopamidol 370 76% 50 ML VIAL FS ONE
[2018-10-18 22:28] LABS: #Eosinphils 0.1 thou/uL (0.0-0.7); #Lymphocytes 1.1 thou/uL (1.20-3.40); #Monocytes 0.5 thou/uL (0.11-0.59); #Neutrophils 4.6 thou/uL (1.40-6.50); %Basophils 0.2 % (0.0-1.0); %Eosinophils 0.9 % (0.0-10.0); %Monocytes 7.8 % (0.0-10.0); Mean Corpuscular HGB CONC 34.6 g/dL (32.0-36.0); Mean Corpuscular Hemoglobin 29.7 pg (27.0-31.0); Mean Corpuscular Volume 85.6 fL (78.0-98.0); Mean Platelet Volume 9.8 fL (7.4-10.4); Platelet Count 157 thou/uL (130-400); RBC Distribution Width 12.1 % (11.5-14.5); Red Blood Cell (RBC) Count 3.38 mill/uL (4.70-6.10); White Blood Cell (WBC) Count 6.3 thou/uL (4.8-10.8)
[2018-10-18 22:52] LABS: ALT (SGPT) 9 U/L (8-55); AST (SGOT) 12 U/L (5-34); Albumin 4.6 g/dL (3.5-5.0); Alkaline Phosphatase 90 U/L (40-150); Anion Gap 13 mmol/L (10-20); BUN (Urea Nitrogen) 50 mg/dL (8.4-25.7); Bilirubin, Total 0.3 mg/dL (0.2-1.2); Calc. Creatinine Clearance 0 mL/min (70-130); Calcium 9.3 mg/dL (7.8-10.44); Carbon Dioxide 18 mmol/L (22-29); Chloride 104 mmol/L (98-107); Estimated GFR-MDRD 23; Globulin 2.7 g/dL (2.4-3.5); Glucose 128 mg/dL (70-105); Potassium 4.2 mmol/L (3.5-5.1); Protein, Total 7.3 g/dL (6.0-8.3); Sodium 131 mmol/L (136-145)
[2018-10-19] MEDS ORDERED: Morphine 4 MG/ML VIAL ONE (00:01)
[2018-10-19] MEDS ORDERED: Ondansetron PF 4 MG/2 ML Vial ONE (00:01)
[2018-10-19 02:26] LABS: Bilirubin Negative (Negative); Blood, Urine Negative (Negative); Clarity CLEAR (Clear); Glucose, Urine (Dipstick) Negative (Negative); Leukocyte Negative (Negative); Nitrite Negative (Negative); Protein, Urine (Dipstick) Negative (Neg-Trace); Specific Gravity, Urine 1.009 (1.002-1.036); Urobilinogen 0.2 mg/dL (0.2-1.0); pH, Urine 5.5 (5.0-9.0)
[2018-10-19] MEDS ORDERED: Bisacodyl 5 MG TAB PO PRN ×2 (02:37)
[2018-10-19] MEDS ORDERED: Diabetic Tussin 200 MG/10 ML UDCUP PO PRN (02:37)
[2018-10-19] MEDS ORDERED: Bisacodyl 10 MG SUPP PR PRN (02:37)
[2018-10-19] MEDS ORDERED: HYDROcodone/Acetaminophen 5/325 mg Tablet PO PRN ×2 (02:37)
[2018-10-19] MEDS ORDERED: cloNIDine 0.1 MG TAB PO PRN (02:37)
[2018-10-19] MEDS ORDERED: Calcium Carbonate 500 MG ChewTAB PO PRN (02:37)
[2018-10-19] MEDS ORDERED: Benzonatate 100 MG CAP PO PRN (02:37)
[2018-10-19] MEDS ORDERED: hydrALAZINE 20 MG/ML VIAL SLOW IVP PRN (02:37)
[2018-10-19] MEDS ORDERED: Sodium Chloride 0.65% Nasal 44 ML BOT EA NARE PRN (02:37)
[2018-10-19] MEDS ORDERED: Senokot S 8.6-50 MG TAB PO PRN ×2 (02:37)
[2018-10-19] MEDS ORDERED: Ondansetron PF 4 MG/2 ML Vial IVP PRN (02:37)
[2018-10-19] MEDS ORDERED: Acetaminophen 325 MG TAB PO PRN (02:37)
[2018-10-19] MEDS ORDERED: Morphine 2 MG/ML SYRINGE SLOW IVP PRN (02:39)
--- NOTE | 2018-10-19 03:53 | HP ---
PRIMARY CARE PHYSICIAN: Janessa Ruiz PA-C CHIEF COMPLAINT: Abdominal pain. HISTORY OF PRESENTING ILLNESS: Mr. Bustamante is a 58-year-old male with past medical history of chronic alcoholism, hypertension, CVA with residual right- sided hemiparesis and dysarthria as well as peptic ulcer disease and varices, who presented to the emergency room with above-mentioned complaint. History is mainly obtained by the patient himself and supplemented by his present at bedside. The patient is a very poor historian, largely because of non-participation and also because of dysarthria. His brought him to the emergency room because she has noticed that he has been having some worsening abdominal pain for the last 4 or 5 days. He has not been having any nausea, vomiting, or diarrhea and was seen by primary care physician on and was treated for gastroenteritis. His abdominal pain got worse, so his brought him to the hospital. He denies any recent illnesses otherwise. He denies any hematochezia, melena, or hematemesis. He denies any nausea, vomiting , or diarrhea. He has no recent fever or chills, chest pain or shortness of breath. He continues to drink about 1 beer a day and refuses to change his habits according to his . He has known history of chronic kidney disease, but refuses to follow up with a deputy prosecuting attorney because he would not "change his habits." In the emergency room, upon presentation, his blood pressure was stable at 125/ 69. He was saturating 99% on room air and was afebrile with a heart rate of 51. His blood work showed lipase elevated at 171 and creatinine elevated at 2.81. His urinalysis was unremarkable. He was diagnosed as having acute alcoholic pancreatitis and is now being admitted under observation status for same. An abdominal ultrasound and CT scan of the abdomen and pelvis is ordered by the ER physician and is currently pending. PAST MEDICAL HISTORY: 1. Hypertension. 2. Chronic alcoholism. 3. History of intracerebral bleed in August 2015. 4. History of esophageal varices. 5. History of falling from a horse more than 12 years ago, fracturing his skull and PASR SURGICAL HISTORY-Cranial trauma neck. SOCIAL HISTORY: He chews tobacco and drinks 1-2 beers a day. No drug abuse. FAMILY HISTORY: Denies any family history of heart attack or stroke. ALLERGIES: INCLUDE SULFAMETHOXAZOLE AND TRIMETHOPRIM. LISTED IN THE ER RECORDS; 1. AMLODIPINE 5 MG DAILY. 2. FOLIC ACID 1 MG DAILY. 3. IRON 325 MG DAILY. 4. LISINOPRIL 20 MG DAILY. 5. MULTIVITAMIN DAILY. 6. ASPIRIN 81 MG DAILY. 7. B1 AND B12 VITAMINS DAILY. 8. ZOFRAN P.R.N. REVIEW OF SYSTEMS: A 14-point review of system is done, it is negative except for those mentioned in the history and physical. LABORATORY EXAMINATION: CBC shows WBC of 6.3, hemoglobin 10, and platelet count of 157. Serum chemistry shows sodium 131, BUN 50, creatinine 2.81, bicarb 18, and lipase 171. Urinalysis unremarkable. Imaging studies are pending at this time. PHYSICAL EXAMINATION: VITAL SIGNS: Upon presentation to the ER, blood pressure 125/69, pulse of 51, respirations 18, temperature 98.5, saturating 99% on room air. GENERAL: No acute distress. Awake, alert, and oriented x3. He is sitting comfortably in bed. HEENT: Mucous membrane is moist and pink. No oropharyngeal exudate or erythema. Head is normocephalic and atraumatic. Pupils are equal and reactive to light and accommodation. Extraocular movement intact. NECK: Supple without any lymphadenopathy, JVD, or bruit. CHEST: Clear to auscultation without any wheezing, rales, or rhonchi. Rate and rhythm are regular without any murmurs, rubs, or gallops. ABDOMEN: Soft, nontender, nondistended with positive bowel sounds. No rebound, guarding, or rigidity. EXTREMITIES: Free of any cyanosis, clubbing, or edema. NEUROLOGICAL: Nonfocal except for dysarthric speech. SKIN: Free of any rashes or bruises. Feels warm and dry to touch. PSYCHIATRIC: Normal affect. IMPRESSION AND PLAN: 1. Acute pancreatitis. It appears mild at this time. He has no tenderness on my examination. He will be treated with n.p.o. status and generous IV fluids. Extensive counseling with regard to alcohol abstinence is done. At this time, he has no evidence to suggest peptic ulcer disease with bleed. However, he has history of same. He will be treated with IV Protonix. He will be admitted to observation status and we will recheck amylase, lipase, LFTs, magnesium, and phosphorus in the morning. Followup the results of the CT scan and ultrasound in the emergency room. Also order a lipid profile. 2. Acute on chronic kidney disease. The patient will be resuscitated with IV fluids and we will avoid any nephrotoxic agents. 3. Hypertension. Resume his home medications once the dosages are confirmed. He will be started on amlodipine. We will hold the lisinopril in light of acute renal insufficiency. 4. Chronic alcoholism. The patient has been extensively counseled, but he reports that he will continue to drink as he does not care much for the consequences of medical opinion. 5. History of cerebrovascular accident. Continue symptomatic and supportive care and institute fall precautions. 6. Add deep venous thrombosis and gastrointestinal prophylaxis. DISPOSITION: Mr. Bustamante is currently being admitted to the hospital for mild acute pancreatitis. Estimated length of stay at this time is less than 2 midnights. Further management will depend upon his clinical course. Job ID: [id number] MTDD
[2018-10-19 04:33] VITALS: BMI 18.9
[2018-10-19] MEDS: Sodium Chloride 0.9% 1,000 ML IV SCH ×3 (04:59→18:40)
[2018-10-19 05:21] LABS: #Eosinphils 0.1 thou/uL (0.0-0.7); #Lymphocytes 1.4 thou/uL (1.20-3.40); #Monocytes 0.5 thou/uL (0.11-0.59); #Neutrophils 3.8 thou/uL (1.40-6.50); %Basophils 0.7 % (0.0-1.0); %Eosinophils 1.4 % (0.0-10.0); %Lymphocytes 23.8 % (21.0-51.0); %Monocytes 7.9 % (0.0-10.0); %Neutrophils 66.2 % (42.0-75.0); Hemoglobin 9.4 g/dL (14.0-18.0); Mean Corpuscular HGB CONC 35.3 g/dL (32.0-36.0); Mean Corpuscular Hemoglobin 30.4 pg (27.0-31.0); Mean Platelet Volume 10.5 fL (7.4-10.4); Platelet Count 142 thou/uL (130-400); RBC Distribution Width 12.2 % (11.5-14.5); Red Blood Cell (RBC) Count 3.09 mill/uL (4.70-6.10); White Blood Cell (WBC) Count 5.7 thou/uL (4.8-10.8)
[2018-10-19 05:38] LABS: Cardiac Risk 3.2 (Less than 4.5)
[2018-10-19 05:46] LABS: ALT (SGPT) 9 U/L (8-55); AST (SGOT) 13 U/L (5-34); Albumin 4.3 g/dL (3.5-5.0); Alkaline Phosphatase 84 U/L (40-150); Anion Gap 12 mmol/L (10-20); BUN (Urea Nitrogen) 45 mg/dL (8.4-25.7); Bilirubin, Direct 0.1 mg/dL (0.1-0.3); Bilirubin, Total 0.3 mg/dL (0.2-1.2); Calc. Creatinine Clearance 29 mL/min (70-130); Calcium 9.1 mg/dL (7.8-10.44); Carbon Dioxide 18 mmol/L (22-29); Chloride 107 mmol/L (98-107); Estimated GFR-MDRD 28; Glucose 105 mg/dL (70-105); Lipase 106 U/L (8-78); Magnesium 1.8 mg/dL (1.6-2.6); Phosphorus 3.7 mg/dL (2.3-4.7); Potassium 4.2 mmol/L (3.5-5.1); Sodium 133 mmol/L (136-145)
--- NOTE | 2018-10-19 07:36 | ULT ---
PRELIMINARY REPORT/[facility]/EMERGENCY AFTER HOURS PROCEDURE: EXAM: US Abdomen Limited, Right Upper Quadrant EXAM DATE/TIME: 10/19/2018 12:04 AM CLINICAL HISTORY: 58 years old, male; Abnormal lab test; Elevated lipase TECHNIQUE: Imaging protocol: Real-time ultrasound of the abdomen with image documentation. Examination was focused on the right upper quadrant. COMPARISON: CT abdomen/pelvis 10/19/2018 FINDINGS: Liver: Normal. No masses. Gallbladder: Normal. No gallstones. There is no gallbladder wall thickening. Common bile duct: Normal. No stones. No dilation. Pancreas: Visualized pancreas is unremarkable. Right kidney: Normal. No mass. No hydronephrosis. IMPRESSION: No acute findings. Thank you for allowing us to participate in the care of your patient. Dictated and Authenticated by: Dylan Lawrence MD 10/19/2018 1:30 AM Central Time ([place] & [place]) FINAL REPORT RIGHT UPPER QUADRANT ULTRASOUND: HISTORY: Abnormal liver function enzymes and elevated lipase. FINDINGS: Multiple longitudinal and transverse images of the right upper quadrant of the abdomen is obtained us ing multi hertz curvilinear transducer. Real-time images obtained. I concur with the dictation from [facility]. No evidence of hepatic, gallbladder, pancreatic or right renal abnormality seen. IMPRESSION: Normal right upper quadrant ultrasound. Common bile duct is of normal size measuring 5 mm. No evidenc e of intrahepatic biliary dilatation seen. Transcribed Date/Time: 10/19/2018 8:00 AM
--- NOTE | 2018-10-19 07:42 | CT ---
PRELIMINARY REPORT/[facility]/EMERGENCY AFTER HOURS PROCEDURE: EXAM: CT Abdomen and Pelvis Without Contrast EXAM DATE/TIME: 10/19/2018 12:54 AM CLINICAL HISTORY: 58 years old, male; 5 days of generalized abdominal pain. Denies vomiting, diarrhea, fever. PT with h/o x 4 esophageal perforations, with stating ruptures due to po, not profuse vomiting; Addition al info: oral contrast only TECHNIQUE: Imaging protocol: Axial computed tomography images of the abdomen and pelvis without contrast. Coronal reformatted images were created and reviewed. COMPARISON: No relevant prior studies available. FINDINGS: Lungs: No acute infiltrate in either lung base. ABDOMEN: Liver: Normal. No mass. Gallbladder and bile ducts: Normal. No calcified stones. No ductal dilation. Pancreas: Normal. No ductal dilation. Spleen: Calcified granulomas within the spleen. The spleen is not enlarged. Adrenals: Normal. No mass. Kidneys and ureters: Normal. No hydronephrosis. Stomach and bowel: Normal. No obstruction. No mucosal thickening. Appendix: No evidence of appendicitis. PELVIS: Bladder: Unremarkable as visualized. Reproductive: Unremarkable as visualized. ABDOMEN and PELVIS: Intraperitoneal space: Normal. No free air. No significant fluid collection. Bones/joints: Spinal degenerative changes. Soft tissues: Unremarkable. Vasculature: Coronary artery calcification. Lymph nodes: Normal. No enlarged lymph nodes. IMPRESSION: No acute intra-abdominal or pelvic process. Thank you for allowing us to participate in the care of your patient. Dictated and Authenticated by: Dylan Lawrence MD 10/19/2018 1:29 AM Central Time ([place] & [place]) FINAL REPORT NONCONTRAST ENHANCED CT IMAGES OF ABDOMEN AND PELVIS: IV contrast was not given. PO contrast was given. HISTORY: The patient has a history of generalized abdominal pain. This is the final report. Preliminary exam was performed by [facility]. FINDINGS/IMPRESSION: I concur with the dictation from [facility]. . No evidence of abnormality seen in the lung bases. No evidence of free intraperitoneal air seen. The liver, spleen, pancreas and gallbladder are unremarkable. No dilated loops of bowel seen. No evidence of periaortic lymphadenopathy seen. No evidence of hydronephrosis or renal calcification seen. Transcribed Date/Time: 10/19/2018 8:05 AM
[2018-10-19] MEDS ORDERED: Pantoprazole 40 MG VIAL IVP SCH (09:00)
[2018-10-19] MEDS ORDERED: Amlodipine 5 MG TAB PO SCH (09:00)
[2018-10-19] MEDS ORDERED: Famotidine/PF 20 mg/2ml Vial SLOW IVP SCH (09:00)
--- NOTE | 2018-10-19 12:23 | PDOC.EVN ---
Event Note - Event Note Event Note: DC SUMMARY #[id number]
[2018-10-19 16:54] VITALS: TEMP 98.1
--- NOTE | 2018-10-19 18:57 | DIS ---
DATE OF ADMISSION: 10/19/2018 DATE OF DISCHARGE: 10/19/2018 ADMITTING DIAGNOSIS: Alcoholic pancreatitis, mild. DISCHARGE DIAGNOSIS: Alcoholic pancreatitis, resolved. HOSPITAL COURSE: This is a 58-year-old male, admitted to the hospital observation unit with alcoholic pancreatitis. The patient's lipase levels at point in time of admission were 171, at point in time of discharge had gone under 106. The patient was tolerating diet. No nausea, vomiting, diarrhea, constipation, chest pain, fevers, chills, or shortness of breath. THIERRY resolved. Hemoglobin stable. The patient tolerated diet, pain free. No signs of SIRS or sepsis or infection noted. Case and plan were discussed with the patient and family at length. Advised to refrain from drinking alcohol. The patient's family was aware. Also stated that they would not allow the patient to drink any alcohol. The patient was to follow up with PCP within 1 to 2 weeks. Case and plan discussed with the patient at length. He understood and agreed with this plan. Discussed with family as well. DISPOSITION: Home. FOLLOWUP: Follow up with PCP within 1 week. MEDICATIONS: See MAR. ACTIVITY: As tolerated with assistance as needed. DIET: Low-fat, low-calorie, high-fiber, plan-based diet. Alcohol cessation. PROGNOSIS: Guarded. CONDITION: Stable. Once again case and plan discussed with the patient at length. Family at bedside, understood and agreed with this plan. Job ID: [id number]
[2018-10-19 19:09] VITALS: BP 104/57
[2018-10-19 19:35] LABS: #Eosinphils 0.1 thou/uL (0.0-0.7); #Monocytes 0.4 thou/uL (0.11-0.59); #Neutrophils 3.4 thou/uL (1.40-6.50); %Basophils 0.4 % (0.0-1.0); %Eosinophils 1.3 % (0.0-10.0); %Lymphocytes 20.6 % (21.0-51.0); %Monocytes 7.9 % (0.0-10.0); %Neutrophils 69.8 % (42.0-75.0); Hemoglobin 8.5 g/dL (14.0-18.0); Mean Corpuscular HGB CONC 34.4 g/dL (32.0-36.0); Mean Corpuscular Hemoglobin 29.8 pg (27.0-31.0); Mean Corpuscular Volume 86.7 fL (78.0-98.0); Mean Platelet Volume 9.6 fL (7.4-10.4); Platelet Count 131 thou/uL (130-400); RBC Distribution Width 12.3 % (11.5-14.5); Red Blood Cell (RBC) Count 2.84 mill/uL (4.70-6.10); White Blood Cell (WBC) Count 4.9 thou/uL (4.8-10.8)
== END 2018-10-19 20:55 | disposition home or self-care (01) ==
LOC: ERS 21:38 → ONC 10-19 03:24
PROVIDERS: ADMIT Internal Medicine; ATTEND Internal Medicine
DX: K85.20 Alcohol induced acute pancreatitis without necrosis or infection (principal); I12.9 Hypertensive chronic kidney disease with stage 1 through stage 4 chronic kidney disease, or unspecified chronic kidney disease; N17.9 Acute kidney failure, unspecified; N18.9 Chronic kidney disease, unspecified; F17.220 Nicotine dependence, chewing tobacco, uncomplicated; Z79.82 Long term (current) use of aspirin; Z79.899 Other long term (current) drug therapy; Z88.2 Allergy status to sulfonamides; Z88.8 Allergy status to other drugs, medicaments and biological substances
CPT/HCPCS: 36415; 74176; 76705; 80048; 80053; 80061; 80076; 81003; 82150; 83690; 83735; 84100; 85025; 96361; 96374; 96375; C9113; G0378; J2270; J2405; Q9967

== ENCOUNTER 2018-11-06 15:41 | Emergency (ER) | payer SELFPAY ==
[2018-11-06 16:10] LABS: #Eosinphils 0.1 thou/uL (0.0-0.7); #Lymphocytes 1.3 thou/uL (1.20-3.40); #Monocytes 0.4 thou/uL (0.11-0.59); #Neutrophils 3.2 thou/uL (1.40-6.50); %Basophils 0.4 % (0.0-1.0); %Eosinophils 1.4 % (0.0-10.0); %Lymphocytes 25.6 % (21.0-51.0); %Monocytes 8.9 % (0.0-10.0); %Neutrophils 63.8 % (42.0-75.0); Mean Corpuscular HGB CONC 33.7 g/dL (32.0-36.0); Mean Corpuscular Hemoglobin 29.9 pg (27.0-31.0); Mean Corpuscular Volume 88.8 fL (78.0-98.0); Platelet Count 172 thou/uL (130-400); RBC Distribution Width 12.2 % (11.5-14.5); Red Blood Cell (RBC) Count 2.67 mill/uL (4.70-6.10)
[2018-11-06 16:33] LABS: ALT (SGPT) 8 U/L (8-55); AST (SGOT) 11 U/L (5-34); Albumin 4.1 g/dL (3.5-5.0); Alkaline Phosphatase 69 U/L (40-150); Anion Gap 12 mmol/L (10-20); BUN (Urea Nitrogen) 28 mg/dL (8.4-25.7); Bilirubin, Total 0.2 mg/dL (0.2-1.2); Calc. Creatinine Clearance 0 mL/min (70-130); Calcium 9.2 mg/dL (7.8-10.44); Carbon Dioxide 20 mmol/L (22-29); Chloride 108 mmol/L (98-107); Estimated GFR-MDRD 35; Globulin 2.5 g/dL (2.4-3.5); Glucose 117 mg/dL (70-105); Lipase 89 U/L (8-78); Potassium 4.1 mmol/L (3.5-5.1); Protein, Total 6.6 g/dL (6.0-8.3); Sodium 136 mmol/L (136-145)
--- NOTE | 2018-11-06 19:47 | ULT ---
Right upper quadrant ultrasound. HISTORY: Abdominal pain Multiple longitudinal and transverse images of the right upper quadrant of the abdomen is obtained us ing multi hertz curvilinear transducer. Real-time, color flow and spectral waveform Doppler analysis used to evaluate the right upper quadrant. Images demonstrate the liver to be unremarkable. The gallbladder is partially contracted. No definite evidence of gallstones or definite sludge seen. If there is concern for gallbladder pathology repeat exam with the patient been appropriately nothing by mouth is recommended. When was the patient's last meal? If clinically indicated repeat exa m is recommended to rule out possible gallbladder pathology. The common bile duct is of normal size. The right kidney is unremarkable measuring 9.4 cm from pole to pole. There does appear to be mild rig ht-sided renal pelvic dilatation which may represent congenital renal fullness. No definite evidence of hydronephrosis seen. The area of hypoechogenicity may also represent a right peripelvic c yst. Normal hepatopedal flow seen in the portal system. Visualized portion of the pancreas is unremarkable. IMPRESSION: Suboptimally distended gallbladder possibly due to recent meal correlate patient history.
[2018-11-06 19:48] LABS: Bilirubin Negative (Negative); Blood, Urine Negative (Negative); Clarity CLEAR (Clear); Glucose, Urine (Dipstick) Negative (Negative); Leukocyte Negative (Negative); Nitrite Negative (Negative); Protein, Urine (Dipstick) Negative (Neg-Trace); Specific Gravity, Urine 1.011 (1.002-1.036); Urobilinogen 0.2 mg/dL (0.2-1.0); pH, Urine 5.5 (5.0-9.0)
== END 2018-11-06 20:34 | disposition home or self-care (01) ==
LOC: ERS 15:41
DX: R10.13 Epigastric pain (principal); R10.811 Right upper quadrant abdominal tenderness; I10 Essential (primary) hypertension; D64.9 Anemia, unspecified; F03.90 Unspecified dementia, unspecified severity, without behavioral disturbance, psychotic disturbance, mood disturbance, and anxiety; F17.220 Nicotine dependence, chewing tobacco, uncomplicated; Z86.73 Personal history of transient ischemic attack (TIA), and cerebral infarction without residual deficits; Z79.899 Other long term (current) drug therapy; Z79.82 Long term (current) use of aspirin
CPT/HCPCS: 36415; 76705; 80053; 81003; 83690; 85025

== ENCOUNTER 2019-02-10 16:26 | Inpatient (IN) | payer SELFPAY ==
[2019-02-10 17:11] LABS: #Lymphocytes 1.1 thou/uL (1.20-3.40); #Monocytes 0.5 thou/uL (0.11-0.59); #Neutrophils 4.1 thou/uL (1.40-6.50); %Basophils 0.2 % (0.0-1.0); %Eosinophils 0.4 % (0.0-10.0); %Lymphocytes 18.7 % (21.0-51.0); %Monocytes 8.5 % (0.0-10.0); %Neutrophils 72.2 % (42.0-75.0); Hemoglobin 9.2 g/dL (14.0-18.0); Mean Corpuscular HGB CONC 34.9 g/dL (32.0-36.0); Mean Corpuscular Hemoglobin 29.7 pg (27.0-31.0); Mean Corpuscular Volume 84.9 fL (78.0-98.0); Mean Platelet Volume 9.8 fL (7.4-10.4); Platelet Count 133 thou/uL (130-400); RBC Distribution Width 11.4 % (11.5-14.5); Red Blood Cell (RBC) Count 3.09 mill/uL (4.70-6.10); White Blood Cell (WBC) Count 5.7 thou/uL (4.8-10.8)
--- NOTE | 2019-02-10 17:22 | RAD ---
EXAM: CHEST ONE VIEW HISTORY: Weakness. COMPARISON: 01/04/2019 FINDINGS: The cardiac silhouette and pulmonary vasculature is within normal limits. Calcified granuloma is agai n seen in the right lung base and in the left upper lobe. The lungs are otherwise clear. The osseous structures are intact. Chest is overall stable from prior study. IMPRESSION: No acute cardiopulmonary process.
[2019-02-10 17:33] LABS: ALT (SGPT) 11 U/L (8-55); AST (SGOT) 14 U/L (5-34); Alkaline Phosphatase 69 U/L (40-150); Anion Gap 17 mmol/L (10-20); BUN (Urea Nitrogen) 77 mg/dL (8.4-25.7); Bilirubin, Total 0.3 mg/dL (0.2-1.2); Calc. Creatinine Clearance 0 mL/min (70-130); Calcium 9.9 mg/dL (7.8-10.44); Carbon Dioxide 14 mmol/L (22-29); Chloride 113 mmol/L (98-107); Estimated GFR-MDRD 14; Globulin 2.6 g/dL (2.4-3.5); Glucose 115 mg/dL (70-105); Potassium 4.8 mmol/L (3.5-5.1); Protein, Total 7.6 g/dL (6.0-8.3); Sodium 139 mmol/L (136-145)
--- NOTE | 2019-02-10 18:38 | CT ---
CT ABDOMEN AND PELVIS NONCONTRAST: 02/10/19 HISTORY: Abdomen pain. Weight loss. COMPARISON: 10/19/18. FINDINGS: Each renal collecting system, ureter and urinary bladder are decompressed without stone apparent. Lack of contrast limits evaluation for other abnormalities. Reported poor renal function. Oral contra st was also withheld. No evidence of bowel obstruction. Calcification throughout the arterial structu res. Degenerative changes lumbar spine. IMPRESSION: No CT evidence of urinary tract obstruction or calcification. Atherosclerosis. POS: BST
[2019-02-10 19:08] LABS: Bilirubin Negative (Negative); Blood, Urine Negative (Negative); Clarity Clear (Clear); Glucose, Urine (Dipstick) Normal (Negative); Leukocyte Negative Leu/uL (Negative); Nitrite Negative (Negative); Protein, Urine (Dipstick) 10 mg/dL (Neg-Trace); Urobilinogen Normal mg/dL (Less than 2)
[2019-02-10] MEDS ORDERED: Lactated Ringer's 1,000 ML IV SCH (22:14)
[2019-02-11] MEDS ORDERED: Ondansetron PF 4 MG/2 ML Vial IVP PRN (00:14)
[2019-02-11] MEDS ORDERED: Ondansetron ODT 4 MG TAB PO PRN (00:14)
[2019-02-11] MEDS ORDERED: Calcium Carbonate 500 MG ChewTAB PO PRN (00:14)
[2019-02-11] MEDS ORDERED: HYDROcodone/Acetaminophen 5/325 mg Tablet PO PRN (00:14)
[2019-02-11] MEDS ORDERED: Bisacodyl 10 MG SUPP PR PRN (00:14)
[2019-02-11] MEDS ORDERED: Bisacodyl 5 MG TAB PO PRN (00:14)
[2019-02-11] MEDS ORDERED: Acetaminophen 325 MG TAB PO PRN (00:14)
[2019-02-11] MEDS ORDERED: Zolpidem Tartrate 5 MG TAB PO PRN (00:14)
[2019-02-11] MEDS ORDERED: Loperamide HCl 2 MG CAP PO PRN (00:14)
[2019-02-11] MEDS ORDERED: Senokot S 8.6-50 MG TAB PO PRN (00:14)
[2019-02-11] MEDS: Sodium Chloride 0.9% 1,000 ML IV SCH ×3 (00:43→22:38)
--- NOTE | 2019-02-11 03:27 | HP ---
PRIMARY CARE PHYSICIAN: Janessa Ruiz PA-C REASON FOR ADMISSION: Acute on chronic kidney failure and dehydration. HISTORY OF PRESENT ILLNESS: This is a 58-year-old male, who has history of chronic kidney disease. At home, he is not eating and drinking enough. He was experiencing generalized weakness. The patient has history of weight loss. The patient denies taking any NSAID. As the patient was becoming overall weak and that is why he was taken to local emergency room. The patient had routine blood test done, which showed acute on chronic kidney failure. His creatinine was 4.39, which was 1 month ago 2.29. The patient was also recently diagnosed with pancreatitis. In the emergency room, the patient had CT stone protocol, which was negative for any obstruction. Chest x-ray was unremarkable. He was given IV fluid and subsequently, he was admitted to the hospital for observation. REVIEW OF SYSTEMS: CONSTITUTIONAL: Negative for weight loss or gain, ability to conduct usual activities. SKIN: Negative for rash, itching. EYES: Negative for double vision, pain. ENT/MOUTH: Negative for nose bleeding, neck stiffness, pain, tenderness. CARDIOVASCULAR: Negative for palpitations, dyspnea on exertion, orthopnea. RESPIRATORY: Negative for shortness of breath, wheezing, cough, hemoptysis, fever or night sweats. GASTROINTESTINAL: Negative for poor appetite, abdominal pain, heartburn, nausea , vomiting, constipation, or diarrhea. GENITOURINARY: Negative for urgency, frequency, dysuria, nocturia. MUSCULOSKELETAL: Negative for pain, swelling. NEUROLOGIC/PSYCHIATRIC: Negative for anxiety, depression. ALLERGY/IMMUNOLOGIC: Negative for skin rash, bleeding tendency. Please see my HPI for pertinent positives and negatives. All other review of systems reviewed and negative except as mentioned in HPI. PAST MEDICAL HISTORY: History of pancreatitis, duodenal ulcer, mild dementia, chronic kidney disease stage 3, history of esophageal varices, hypertension, history of CVA, history of accident through horse lead to neck and skull fracture and history of alcohol abuse. PAST SURGICAL HISTORY: EGD, surgery for cranial trauma and neck. PAST PSYCHIATRIC HISTORY: Reviewed and negative. SOCIAL HISTORY: The patient is . He chews tobacco. He drinks alcohol. He denies any other illicit drug abuse. FAMILY HISTORY: No strong family history of premature coronary artery disease, stroke, or cancer. ALLERGIES: SULFA DRUGS. CURRENT HOME MEDICATION: 1. Amlodipine 5 mg p.o. daily. 2. Aspirin 81 mg daily. 3. Vitamin B12 1000 mcg p.o. daily. 4. Ferrous sulfate 325 mg p.o. daily. 5. Protonix 40 mg daily. 6. Folic acid 1 mg daily. 7. Thiamine 1 tablet daily. 8. Lisinopril 20 mg daily. EMERGENCY ROOM COURSE: The patient has received 2 L IV fluid. PHYSICAL EXAMINATION: VITAL SIGNS: On arrival, blood pressure 98/56, pulse 80, respiratory rate 18, temperature 97.4, saturation 100%, weight 55.8 kg. GENERAL: The patient is currently alert, awake, no obvious acute distress, chronically ill. HEENT: Head; normocephalic, atraumatic. Eyes; pupils round and reactive to light. Extraocular muscle intact. No nystagmus. ENT, dry mucous membranes. No oral lesion. No pharyngeal erythema. No exudate. NECK: Supple. No JVD. No thyromegaly. No carotid bruit. No jugular venous distention. LUNGS: Clear to auscultation without any rhonchi or rales. CARDIAC: S1, S2. Regular without any significant murmur. ABDOMEN: Soft, bowel sounds present. No organomegaly. No mass. No peritoneal sign. Subjective discomfort. BACK: Unremarkable. No CVA tenderness. EXTREMITIES: Upper extremities; passive movement of all joints are normal. Lower extremities; no edema. Good distal pulsation. SKIN: No skin rash. hematology: No lymphadenopathy. NEUROLOGIC: Nonfocal examination. Speech normal. SIGNIFICANT LABORATORY DATA: EKG showing normal sinus rhythm, within normal limits. Chest x-ray based on my review, no acute cardiopulmonary process. CT abdomen and pelvis done without contrast was negative for any urinary tract obstruction or calcification. CBC; WBC 5.7, hemoglobin 9.2, platelet count 133. BMP; sodium 139, potassium 4.8, chloride 113, carbon dioxide 14, anion gap 17, BUN 77, creatinine 4.39, glucose 115, calcium 9.9. LFTs; AST 14, ALT 11, alkaline phosphatase 69, albumin 5.0. Troponin less than 0.010. Lipase 118. Urinalysis normal. ASSESSMENT/PLAN: 1. Acute on chronic kidney failure with baseline chronic kidney disease stage 3. The patient has poor p.o. intake. He clinically appears dehydrated. Based on BUN creatinine ratio, the patient is having prerenal acute kidney failure. At this point, the patient will require IV fluid. We will repeat BMP tomorrow. Nephrology has been consulted. We will avoid nephrotoxic agent. 2. Hypotension. We will hold on antihypertensive medication because of low blood pressure. 3. Anemia, normocytic normochromic. We will continue vitamin B12, folic acid and thiamine daily. 4. History of peptic ulcer disease. We will continue Protonix 40 mg p.o. daily. 5. Protein calorie malnutrition, moderate. The patient will be given supplement with Ensure t.i.d. 6. Deep venous thrombosis prophylaxis, not needed because we are expecting discharge soon. 7. Gastrointestinal prophylaxis, patient is already on Protonix therapy. 8. Dehydration. The patient is receiving IV fluid. 9. Failure to thrive in adult, there is no obvious etiology found on routine investigation. May be related with his chronic pancreatitis from chronic alcoholism and renal insufficiency. 10. Metabolic acidosis from renal failure. CODE STATUS: The patient is full code. The patient's is surrogate decision maker. DISPOSITION PLAN: Based on clinical course and renal function. Job ID: [id number] MTDD
[2019-02-11 05:15] LABS: #Eosinphils 0.1 thou/uL (0.0-0.7); #Lymphocytes 1.1 thou/uL (1.20-3.40); #Monocytes 0.4 thou/uL (0.11-0.59); #Neutrophils 1.8 thou/uL (1.40-6.50); %Basophils 0.9 % (0.0-1.0); %Eosinophils 1.8 % (0.0-10.0); %Lymphocytes 32.4 % (21.0-51.0); %Monocytes 11.8 % (0.0-10.0); %Neutrophils 53.2 % (42.0-75.0); Hemoglobin 7.3 g/dL (14.0-18.0); Mean Corpuscular HGB CONC 34.8 g/dL (32.0-36.0); Mean Corpuscular Hemoglobin 29.6 pg (27.0-31.0); Mean Corpuscular Volume 85.1 fL (78.0-98.0); Mean Platelet Volume 9.9 fL (7.4-10.4); Platelet Count 95 thou/uL (130-400); Platelet Morphology Comment Appears Decreased; RBC Distribution Width 11.5 % (11.5-14.5); Red Blood Cell (RBC) Count 2.48 mill/uL (4.70-6.10); White Blood Cell (WBC) Count 3.4 thou/uL (4.8-10.8)
[2019-02-11 05:20] LABS: ALT (SGPT) 9 U/L (8-55); AST (SGOT) 10 U/L (5-34); Albumin 3.7 g/dL (3.5-5.0); Alkaline Phosphatase 53 U/L (40-150); Anion Gap 14 mmol/L (10-20); BUN (Urea Nitrogen) 67 mg/dL (8.4-25.7); Bilirubin, Total 0.2 mg/dL (0.2-1.2); Calc. Creatinine Clearance 22 mL/min (70-130); Calcium 8.4 mg/dL (7.8-10.44); Carbon Dioxide 15 mmol/L (22-29); Chloride 117 mmol/L (98-107); Estimated GFR-MDRD 23; Globulin 1.9 g/dL (2.4-3.5); Glucose 99 mg/dL (70-105); Potassium 4.7 mmol/L (3.5-5.1); Protein, Total 5.6 g/dL (6.0-8.3); Sodium 141 mmol/L (136-145)
[2019-02-11] MEDS: Thiamine 100 MG TAB PO SCH (10:21)
[2019-02-11] MEDS: Aspirin 81 mg Enteric Coated Tablet PO SCH (10:22)
[2019-02-11] MEDS: Cyanocobalamin (Vitamin B-12) 1,000 MCG TAB PO SCH (10:22)
[2019-02-11] MEDS: Folic Acid 1 MG TAB PO SCH (10:22)
[2019-02-11] MEDS: Ferrous Sulfate 325 MG TAB PO SCH (10:22)
[2019-02-11] MEDS: Famotidine 20 MG TAB PO SCH (10:22)
--- NOTE | 2019-02-11 10:32 | CON ---
DATE OF CONSULTATION: REASON FOR CONSULTATION: Elevated creatinine. HISTORY OF PRESENTING ILLNESS: This is a very pleasant 58-year-old gentleman seen by Dr. Mata, presented to the hospital with acute on chronic renal failure. The patient was hydrated and creatinine improved from 4 to 2s. The patient denies nausea, vomiting, or chest pain. PAST MEDICAL HISTORY: Pancreatitis, dementia, chronic kidney disease stage 3, hypertension, CVA, neck fracture, EGD, cranial trauma and neck. SOCIAL HISTORY: No alcohol or drug abuse. FAMILY HISTORY: Negative for ESRD. ALLERGIES: REVIEWED. MEDICATIONS: Home medications list reviewed. Hospital medications list reviewed. REVIEW OF SYSTEMS: Fifteen-point review of systems was performed and was negative, except for positives noted above. GENERAL: HEAD: NECK: No swelling or lumps. NOSE: No epistaxis or discharge. EYES: No diplopia or pain. RESPIRATORY: CARDIOVASCULAR: GASTROINTESTINAL: /WIRELESS WATCHER: MUSCULOSKELETAL: No joint pain. NEUROPSYCHIATRIC SYSTEMS: No suicidal ideation. No ideation. SKIN: Denies any rash or ulcer. CONSTITUTIONAL: No fever or chills. PHYSICAL EXAMINATION: See above. The patient is awake and alert, in no acute distress. VITAL SIGNS: Pulse 75, breathing 16, blood pressure 117/69. GENERAL APPEARANCE AND MENTAL STATUS: Fair. HEAD/NECK: Normocephalic. Atraumatic. EYES: EOMI. No deformity. EARS: Clear. No ulcers. NOSE: Intact. No lesions. MOUTH: Clear. No discharge. THROAT: Clear. No exudate. LUNGS: Clear. No crackles. CARDIAC: S1, S2. No rub. ABDOMEN: Benign. Bowel sounds positive. GENITALIA/RECTUM: Chew absent. BACK/EXTREMITIES: Edema 0+. NEUROLOGICAL: Alert and motor intact. SKIN: LYMPHATICS: LABORATORY DATA: Reviewed. ASSESSMENT AND PLAN: 1. Stage 4 chronic kidney disease with acute kidney injury due to acute tubular necrosis, improved. Continue hydration. Stop lisinopril. Medication based on GFR appropriate. 2. Anemia. Would recommend transfusion. No indication for dialysis at this time. Job ID: [id number]
[2019-02-11 13:47] VITALS: BMI 16.8
--- NOTE | 2019-02-11 14:28 | PDOC.HOSPP ---
- Subjective Subjective: Feels ok. No specific complaints. Says he has been getting up and around a little bit. - Objective Vital Signs & Weight: Vital Signs (12 hours) Temp Pulse Pulse Resp BP BP Pulse Ox 02/11/19 13:55 98.4 F 64 18 100/57 L 98 02/11/19 11:50 97.9 F 62 18 101/62 100 02/11/19 08:00 98.1 F 75 20 117/69 98 02/11/19 04:30 97.8 F 67 16 98/57 L 98 Weight Admit Weight 120 lb 3.2 oz Weight 120 lb 9.6 oz I&O: 02/10/19 02/11/19 02/12/19 06:59 06:59 06:59 Intake Total 1142 0 Output Total 1150 Balance -8 0 Result Diagrams: 02/11/19 04:23 02/11/19 04:23 Hospitalist ROS - Medication Medications: Active Medications Generic Name Dose Route Start Last Admin Trade Name Freq PRN Reason Stop Dose Admin Aspirin 81 mg 02/11/19 09:00 02/11/19 10:22 Ecotrin PO 81 mg DAILY TOI Administration Cyanocobalamin 1,000 mcg 02/11/19 09:00 02/11/19 10:22 Vitamin B-12 PO 1,000 mcg DAILY TOI Administration Famotidine 20 mg 02/11/19 09:00 02/11/19 10:22 Pepcid PO 20 mg DAILY TOI Administration Ferrous Sulfate 325 mg 02/11/19 09:00 02/11/19 10:22 Feosol PO 325 mg DAILY TOI Administration Folic Acid 1 mg 02/11/19 09:00 02/11/19 10:22 Folvite PO 1 mg DAILY TOI Administration Sodium Chloride 1,000 mls @ 100 mls/hr 02/11/19 00:15 02/11/19 12:30 Normal Saline 0.9% IV 1,000 mls .Q10H TOI Administration Pantoprazole Sodium 40 mg 02/11/19 09:00 02/11/19 10:22 Protonix PO 40 mg DAILY TOI Administration Sodium Chloride 10 ml 02/11/19 09:00 02/11/19 10:26 Flush - Normal Saline IVF Not Given Q12HR TOI Thiamine HCl 250 mg 02/11/19 09:00 08/28/19 10:21 Thiamine PO 250 mg DAILY TOI Administration - Exam General Appearance: NAD, awake alert General - other findings: Generally thin Heart: RRR, no murmur, no gallops, no rubs, normal peripheral pulses Respiratory: CTAB, no wheezes, no rales, no ronchi, normal chest expansion, no tachypnea, normal percussion Gastrointestinal: soft, non-tender, non-distended, normal bowel sounds, no palpable masses, no hepatomegaly, no splenomegaly, no bruit Extremities: no cyanosis, no clubbing, no edema Musculoskeletal: normal tone, normal strength, diffuse muscle atrophy Psychiatric - other findings: Slightly altered affect. Hosp A/P (1) Anemia Code(s): D64.9 - ANEMIA, UNSPECIFIED Status: Acute (2) THIERRY (acute kidney injury) Code(s): N17.9 - ACUTE KIDNEY FAILURE, UNSPECIFIED Status: Acute (3) Moderate dehydration Code(s): E86.0 - DEHYDRATION Status: Acute (4) Dementia, multiinfarct Code(s): F01.50 - VASCULAR DEMENTIA WITHOUT BEHAVIORAL DISTURBANCE Status: Chronic (5) H/O: CVA (cerebrovascular accident) Code(s): Z86.73 - PRSNL HX OF TIA (TIA), AND CEREB INFRC W/O RESID DEFICITS Status: Chronic (6) Hypertension Code(s): I10 - ESSENTIAL (PRIMARY) HYPERTENSION Status: Chronic (7) Hypotension Status: Acute - Plan Has persistent hypotension. Given that and the anemia will hemoccult stools and follow hgb. Has had anemia workup in the past with normal B12 and Folate levels. May be dilutional, but has not been this low in the past. Continue IVF. Renal function is improved. Walking program.
[2019-02-11 18:27] LABS: #Eosinphils 0.1 thou/uL (0.0-0.7); #Monocytes 0.5 thou/uL (0.11-0.59); #Neutrophils 2.4 thou/uL (1.40-6.50); %Basophils 0.4 % (0.0-1.0); %Eosinophils 1.7 % (0.0-10.0); %Lymphocytes 26.1 % (21.0-51.0); %Monocytes 12.2 % (0.0-10.0); %Neutrophils 59.7 % (42.0-75.0); Mean Corpuscular HGB CONC 34.7 g/dL (32.0-36.0); Mean Corpuscular Hemoglobin 30.1 pg (27.0-31.0); Mean Corpuscular Volume 86.7 fL (78.0-98.0); Mean Platelet Volume 10.1 fL (7.4-10.4); Platelet Count 101 thou/uL (130-400); RBC Distribution Width 11.7 % (11.5-14.5); Red Blood Cell (RBC) Count 2.98 mill/uL (4.70-6.10)
[2019-02-12] MEDS: Sodium Chloride 0.9% 1,000 ML IV SCH (02:12)
[2019-02-12 06:40] LABS: #Eosinphils 0.1 thou/uL (0.0-0.7); #Lymphocytes 1.2 thou/uL (1.20-3.40); #Monocytes 0.3 thou/uL (0.11-0.59); #Neutrophils 1.8 thou/uL (1.40-6.50); %Basophils 0.7 % (0.0-1.0); %Eosinophils 1.7 % (0.0-10.0); %Lymphocytes 34.9 % (21.0-51.0); %Monocytes 9.8 % (0.0-10.0); %Neutrophils 52.9 % (42.0-75.0); Hemoglobin 8.7 g/dL (14.0-18.0); Mean Corpuscular HGB CONC 35.7 g/dL (32.0-36.0); Mean Corpuscular Hemoglobin 30.5 pg (27.0-31.0); Mean Corpuscular Volume 85.3 fL (78.0-98.0); Mean Platelet Volume 11.1 fL (7.4-10.4); Platelet Count 91 thou/uL (130-400); RBC Distribution Width 11.6 % (11.5-14.5); Red Blood Cell (RBC) Count 2.86 mill/uL (4.70-6.10); White Blood Cell (WBC) Count 3.3 thou/uL (4.8-10.8)
[2019-02-12 07:14] LABS: Anion Gap 12 mmol/L (10-20); BUN (Urea Nitrogen) 48 mg/dL (8.4-25.7); Calc. Creatinine Clearance 38 mL/min (70-130); Calcium 8.4 mg/dL (7.8-10.44); Carbon Dioxide 16 mmol/L (22-29); Chloride 118 mmol/L (98-107); Estimated GFR-MDRD 43; Glucose 94 mg/dL (70-105); Potassium 4.7 mmol/L (3.5-5.1); Sodium 141 mmol/L (136-145)
[2019-02-12] MEDS: Ferrous Sulfate 325 MG TAB PO SCH (08:57)
[2019-02-12] MEDS: Cyanocobalamin (Vitamin B-12) 1,000 MCG TAB PO SCH (08:57)
[2019-02-12] MEDS: Folic Acid 1 MG TAB PO SCH (08:58)
[2019-02-12] MEDS: Thiamine 100 MG TAB PO SCH (08:58)
[2019-02-12] MEDS: Aspirin 81 mg Enteric Coated Tablet PO SCH (09:04)
[2019-02-12] MEDS: Famotidine 20 MG TAB PO SCH (09:04)
--- NOTE | 2019-02-12 10:28 | PRG ---
DATE OF SERVICE: 02/12/2019 SUBJECTIVE: A 58-year-old gentleman being seen for acute kidney injury. The patient denies any nausea, vomiting, or chest pain. OBJECTIVE: CONSTITUTIONAL: The patient is awake and alert. VITAL SIGNS: Afebrile, pulse 75, breathing 16, and blood pressure 127/76. GENERAL APPEARANCE AND MENTAL STATUS: Fair. HEAD/NECK: Normocephalic. Atraumatic. EYES: EOMI. No deformity. EARS: Clear. No ulcers. NOSE: Intact. No lesions. MOUTH: Clear. No discharge. THROAT: Clear. No exudate. LUNGS: Clear. No crackles. CARDIAC: S1, S2. No rub. ABDOMEN: Benign. Bowel sounds positive. GENITALIA/RECTUM: Chew absent. BACK/EXTREMITIES: Edema 0+. NEUROLOGICAL: Alert and motor intact. SKIN: LYMPHATICS: LABORATORY DATA: Labs reviewed. ASSESSMENT AND PLAN: Chronic kidney disease stage 3, stable. Acute kidney injury due to acute tubular necrosis, resolved. Hypertension, stable. Metabolic acidosis, improved. No indication for dialysis. We will follow the patient's renal function closely. Job ID: [id number]
--- NOTE | 2019-02-12 10:50 | PDOC.HOSPP ---
- Subjective Encounter Date: 02/12/19 Encounter Time: 10:45 Subjective: Patient is doing well. He has no complaints. He wants to go home. - Objective Vital Signs & Weight: Vital Signs (12 hours) Temp Pulse Resp BP Pulse Ox 02/12/19 07:22 97.6 F 64 18 127/76 100 02/12/19 04:00 98.0 F 55 L 16 103/57 L 98 02/12/19 00:00 97.8 F 58 L 16 95/59 L 99 Weight Admit Weight 120 lb 3.2 oz Weight 120 lb 9.6 oz I&O: 02/11/19 02/12/19 02/13/19 06:59 06:59 06:59 Intake Total 1142 3750 Output Total 1150 2900 Balance -8 850 Result Diagrams: 02/12/19 05:52 02/12/19 05:52 Hospitalist ROS - Medication Medications: Active Medications Generic Name Dose Route Start Last Admin Trade Name Freq PRN Reason Stop Dose Admin Aspirin 81 mg 02/11/19 09:00 02/12/19 09:04 Ecotrin PO Not Given DAILY TOI Cyanocobalamin 1,000 mcg 02/11/19 09:00 02/12/19 08:57 Vitamin B-12 PO 1,000 mcg DAILY TOI Administration Famotidine 20 mg 02/11/19 09:00 02/12/19 09:04 Pepcid PO Not Given DAILY TOI Ferrous Sulfate 325 mg 02/11/19 09:00 02/12/19 08:57 Feosol PO 325 mg DAILY TOI Administration Folic Acid 1 mg 02/11/19 09:00 02/12/19 08:58 Folvite PO 1 mg DAILY TOI Administration Sodium Chloride 1,000 mls @ 100 mls/hr 02/11/19 00:15 02/12/19 02:12 Normal Saline 0.9% IV 1,000 mls .Q10H TOI Administration Pantoprazole Sodium 40 mg 02/11/19 09:00 02/12/19 09:06 Protonix PO Not Given DAILY TOI Sodium Chloride 10 ml 02/11/19 09:00 02/12/19 09:05 Flush - Normal Saline IVF Not Given Q12HR TOI Thiamine HCl 250 mg 02/11/19 09:00 02/12/19 08:58 Thiamine PO 250 mg DAILY TOI Administration - Exam General Appearance: NAD General - other findings: Very thin. Heart: RRR, no murmur, no gallops, no rubs, normal peripheral pulses Respiratory: CTAB, no wheezes, no rales, no ronchi, normal chest expansion, no tachypnea, normal percussion Gastrointestinal: soft, non-tender, non-distended, normal bowel sounds, no palpable masses, no hepatomegaly, no splenomegaly, no bruit Extremities: no cyanosis, no clubbing, no edema Musculoskeletal: normal tone Psychiatric: normal affect, normal behavior Hosp A/P (1) Anemia Code(s): D64.9 - ANEMIA, UNSPECIFIED Status: Acute (2) THIERRY (acute kidney injury) Code(s): N17.9 - ACUTE KIDNEY FAILURE, UNSPECIFIED Status: Acute (3) Moderate dehydration Code(s): E86.0 - DEHYDRATION Status: Acute (4) Dementia, multiinfarct Code(s): F01.50 - VASCULAR DEMENTIA WITHOUT BEHAVIORAL DISTURBANCE Status: Chronic (5) H/O: CVA (cerebrovascular accident) Code(s): Z86.73 - PRSNL HX OF TIA (TIA), AND CEREB INFRC W/O RESID DEFICITS Status: Chronic (6) Hypertension Code(s): I10 - ESSENTIAL (PRIMARY) HYPERTENSION Status: Chronic (7) Hypotension Status: Acute - Plan BP has stabilized. Renal function back to baseline. Hgb better after transfusion. Stool heme +. Recommended patient get GI eval for acute on chronic anemia (lowest hgb documented) and heme + stools. Patient seems to understand the situation and the risks and benefits adequately. He chose to go home and forego any workup. He was prepared to leave AMA. He subsequently has talked to his and is now willing to stay. His indicated to the nurse that she did not think he had capacity to comprehend the situation, but he appeared to when I discussed it with him. He is willing to stay. Will consult GI. Plan on rechecking Hgb in am.
[2019-02-12] MEDS ORDERED: Sodium Chloride 0.9% 1,000 ML IV SCH (10:51)
[2019-02-12 11:48] VITALS: BP 119/78; TEMP 97.8
[2019-02-12 11:54] LABS: Reticulocyte Count 1.1 % (0.5-1.5)
[2019-02-12 12:03] LABS: Iron 132 ug/dL (65-175); Iron Binding Capacity, Total 171 mcg/dL (261-462)
--- NOTE | 2019-02-12 17:06 | CON ---
DATE OF CONSULTATION: 02/12/2019 REASON FOR CONSULTATION: Anemia. CONSULTING PHYSICIAN: Dr. Mat Hinton. HISTORY OF PRESENT ILLNESS: The patient is a 58-year-old male with past medical history of chronic kidney disease stage 3, pancreatitis, duodenal ulcer, [id number] dementia, hypertension, cerebrovascular accident, and history of alcohol abuse, who was initially admitted to the hospital for acute kidney failure. Per chart review (the patient is a poor historian), the patient has been experiencing generalized weakness over the last few months and with worsening of his weakness had been prompted to seek healthcare assistance in the local ER. At which point, he underwent routine blood exams, which showed that his creatinine was 4.39, so he was subsequently transferred to [facility] for further evaluation. Upon further chart review, the patient has had multiple ER visits over the course of the last 4 to 6 weeks primarily related to acute kidney injury secondary to poor oral intake. Per the patient's , she states that he has been having difficulty remembering to consume fluids and has been consuming decreased amounts and when this happens, he stops eating, which then resulted in kidney problems and weakness prompting his admission to the ER. However, during this admission to the [place] ER, he was noted to have significant anemia when compared to baseline concerning for possible bleeding source. Currently, the patient denies any nausea, vomiting, fevers, chills, hematemesis, or melena; although, there was some mention in his chart as well as the chart as an outpatient that he may have had some hematochezia in the recent past. Of note, the patient has been getting evaluated for this anemia in the outpatient GI Clinic with an EGD performed on January 26, 2019, with the findings of mild inflammation within the gastric antrum with biopsies showing chronic inactive gastritis without Helicobacter pylori. There were also 2 nonbleeding superficial duodenal ulcers found within the duodenal bulb measuring approximately 2 to 4 mm in diameter, but did not exhibit any evidence of active/recent bleeding. PAST MEDICAL HISTORY: As per HPI. PAST SURGICAL HISTORY: Repair of cranial trauma secondary to injury sustained from horse. FAMILY HISTORY: Denies any GI malignancies. SOCIAL HISTORY: Chewing tobacco and drinking approximately 1 to 2 beers daily, although he denies any illicit drug use. OUTPATIENT MEDICATIONS: Reviewed. ALLERGIES: SULFAMETHOXAZOLE/TRIMETHOPRIM AND SULFA MEDICATIONS. PHYSICAL EXAMINATION: VITAL SIGNS: Temperature 97.8, pulse 50, blood pressure 119/78, respiratory rate 18, and saturating 99% on room air. GENERAL: The patient was lying in bed, in no acute distress. Alert and oriented x2. The patient's speech was somewhat garbled at times and inability to recount recent information. HEENT: Normocephalic and atraumatic. NECK: Supple. No JVD or scleral icterus noted. CARDIOVASCULAR: Regular rate and rhythm with no discernible murmurs, gallops, or rubs. RESPIRATORY: Clear to auscultation bilaterally with no discernible wheezes or rales. ABDOMEN: Normoactive bowel sounds. Soft, nontender, and nondistended. EXTREMITIES: No cyanosis, clubbing, or edema. LABORATORY DATA: CBC with a white blood cell count of 3.3, hemoglobin 8.7, hematocrit 24.4, platelets 91. Chemistry with a sodium of 141, potassium 4.7, chloride 118, CO2 of 16, BUN 48, creatinine 1.67, glucose 94. AST 10, ALT 9, alkaline phosphatase 53, total bilirubin 0.2, lipase 118, albumin 3.7, iron 132, total iron binding complex 171, ferritin 860 (although, iron indices were obtained after infusion of blood). IMAGING DATA: EGD and colonoscopy were performed on February 14, 2016, which showed a 6 mm duodenal ulcer without any evidence of high-risk stigmata bleeding. LA grade D reflux esophagitis was also seen during that exam in addition to a small hiatal hernia. Colonoscopy yielded normal findings except for small internal hemorrhoids with no evidence of polyps or colon cancer at that time. Repeat upper endoscopy was performed on January 26, 2019, which showed localized mild inflammation characterized by erythema and friability in the gastric antrum with biopsies consistent with chronic inactive gastritis without the presence of H. pylori. Two nonbleeding superficial duodenal ulcers were also seen within the duodenal bulb measuring approximately 2 to 4 mm in diameter, but again did not exhibit any evidence of active/recent bleeding. ASSESSMENT AND PLAN: The patient is a 58-year-old male with past medical history of chronic kidney disease stage 3, pancreatitis, duodenal ulcer, mild dementia, hypertension, cerebrovascular accident, and alcohol abuse, presenting with anemia. Anemia. The patient is presenting with a longstanding history of anemia, which has been present since at least 2015 when he underwent both upper and lower endoscopy at that time. At that time, duodenal ulcers as well as severe esophagitis was noted with plans to keep patient on a PPI indefinitely for these conditions. However, he was recently re-evaluated within the GI Outpatient Clinic for anemia and noted to have small duodenal ulcerations, but again no evidence of active/recent bleeding. Based on the labs obtained during this admission, they are more consistent with anemia of chronic disease versus renal disease rather than chronic GI blood loss, which then generated an iron-deficiency anemia. Given his recent upper endoscopy and negative colonoscopy approximately 3 years ago, it is questionable about whether further endoscopic evaluation is warranted. RECOMMENDATIONS: 1. We would continue to trend hemoglobin and hematocrit and transfuse as necessary to maintain an H and H of 7/21. 2. Continue to monitor clinically for signs of active GI bleeding. 3. Repeat upper endoscopy is not indicated at this time given lack of overt evidence of GI bleeding and recent nature of the prior study. 4. We will hold on colonoscopy for now, especially given the history of internal hemorrhoids that could generate a positive FOBT seen during this admission. 5. We would avoid any NSAIDs as they could further exacerbate any ulcerations. We will continue to follow. Please call with any questions. Job ID: [id number]
== END 2019-02-12 16:15 | disposition home or self-care (01) | DRG 683 ==
LOC: ERS 16:26 → ERHOLD 19:27 → OBSVTOIN 19:27 → 2SW 22:09 → T4-A 02-11 22:08
PROVIDERS: ADMIT Internal Medicine; ATTEND Internal Medicine
DX: N17.0 Acute kidney failure with tubular necrosis (principal); E44.0 Moderate protein-calorie malnutrition; E87.2 Acidosis; Z68.1 Body mass index [BMI] 19.9 or less, adult; I12.9 Hypertensive chronic kidney disease with stage 1 through stage 4 chronic kidney disease, or unspecified chronic kidney disease; E86.0 Dehydration; Z86.73 Personal history of transient ischemic attack (TIA), and cerebral infarction without residual deficits; Z98.890 Other specified postprocedural states; F17.220 Nicotine dependence, chewing tobacco, uncomplicated; Z79.82 Long term (current) use of aspirin; Z79.899 Other long term (current) drug therapy; D64.9 Anemia, unspecified; R62.7 Adult failure to thrive; N18.4 Chronic kidney disease, stage 4 (severe); F01.50 Vascular dementia, unspecified severity, without behavioral disturbance, psychotic disturbance, mood disturbance, and anxiety; I95.9 Hypotension, unspecified; Z88.2 Allergy status to sulfonamides; Z88.8 Allergy status to other drugs, medicaments and biological substances
CPT/HCPCS: 36415; 36430; 51701; 71045; 74176; 80048; 80053; 81003; 82274; 82728; 83540; 83550; 83690; 84484; 85025; 85046; 86850; 86900; 86901; 93005; 96360; 96361; J7120; P9016

== ENCOUNTER 2025-03-31 10:03 | Day surgery (SDC) | payer OTHER ==
[2025-03-31] MEDS ORDERED: Acetaminophen 500 MG TAB ONE (10:38)
[2025-03-31] MEDS ORDERED: diphenhydrAMINE 25 MG CAP ONE (10:38)
[2025-03-31] MEDS: Acetaminophen 500 MG TAB PO SCH (10:39)
[2025-03-31] MEDS: diphenhydrAMINE 25 MG CAP PO SCH (10:39)
[2025-03-31 13:38] VITALS: BP 149/71; TEMP 97.7
== END 2025-03-31 13:39 | disposition home or self-care (01) ==
LOC: ONC/OP 10:03
PROVIDERS: ATTEND Internal Medicine Hematology & Oncology
DX: D64.9 Anemia, unspecified (principal); D69.6 Thrombocytopenia, unspecified
CPT/HCPCS: 36430; 86850; 86900; 86901; P9016